=== PATIENT | male | born 1975 | race Caucasian/White ===

== ENCOUNTER 2022-11-26 19:47 | Emergency (ER) | payer OTHER, SELFPAY ==
--- NOTE | ~2022-11-26 | XR_ITS ---
EXAMINATION: XR CHEST CLINICAL INFORMATION: Cough with question pneumonia COMPARISON: None TECHNIQUE: Frontal view of the chest was obtained. FINDINGS: No significant abnormality is noted involving the heart, lungs, mediastinum, bony thorax or soft tissues. XR/XR chest 1V IMPRESSION: Unremarkable examination.
[2022-11-26 20:37] VITALS: BP 161/89; PULSE 87; RESP 20; TEMP 36.9; O2SAT 95; BMI 46.7
--- NOTE | 2022-11-26 20:42 | ECG_ITS ---
Test Reason : SOB Blood Pressure : / mmHG Vent. Rate : 079 BPM Atrial Rate : 079 BPM P-R Int : 124 ms QRS Dur : 094 ms QT Int : 380 ms P-R-T Axes : -06 -07 064 degrees QTc Int : 435 ms Normal sinus rhythm Normal ECG No previous ECGs available Referred By: Ankit Deras Electronically Signed By:Javier Erickson
--- NOTE | 2022-11-26 20:43 | ED.GENADULT ---
HPI - General Adult General Chief complaint: Dyspnea Stated complaint: ?Pneumonia/Sent from Urgent Care Related Data Allergies Allergy/AdvReac Type Severity Reaction Status Date / Time No Known Allergies Allergy Verified 11/26/22 20:41 Physical Exam ED Vital Signs: Vital Signs - 24 hr 11/26/22 20:37 Temperature 98.5 F Pulse Rate 87 Respiratory Rate 20 Blood Pressure 161/89 H Pulse Oximetry 95 Oxygen Delivery Method Room Air BMI result Body Mass Index 46.7 Course Course Course Narrative: RME; 47 yold people presents to the ED for SOB and coughing. Patient is not toxic appearing. labs, ekg, and MARY ordered
[2022-11-26 21:35] LABS: MANUAL DIFF FLAG NO
[2022-11-26 21:52] LABS: Basophils Absolute Auto 0.1 X10*3/uL (0.0-0.2); Basophils Percent Auto 0.6 % (0-2); Eosinophils Absolute Auto 0.1 X10*3/uL (0.0-0.4); Eosinophils Percent Auto 0.5 % (0-4); Hematocrit 46.4 % (42.0-52.0); Hemoglobin 16.5 g/dl (14.0-18.0); Imm Gran Abs Auto 0.08 X10*3/uL (0.00-0.03); Imm Gran Pct Auto 0.6 % (0.0-0.4); Lymphocytes Absolute Auto 3.1 X10*3/uL (1.2-4.9); Lymphocytes Percent Auto 22.7 % (20-40); Mean Corpuscular HGB Conc 35.6 g/dl (31.0-36.0); Mean Corpuscular Hemoglobin 31.3 pg (27.0-33.0); Mean Platelet Volume 9.6 fL (9.4-12.4); Monocytes Absolute Auto 1.3 X10*3/uL (0.1-1.2); Monocytes Percent Auto 9.5 % (2-11); Neutrophils Percent Auto 66.1 % (45-73); Platelet Count 241 X10*3/uL (160-400); Red Blood Count 5.27 X10*6/uL (4.60-5.80); Red Cell Distribution Width 11.9 % (11.0-16.0); White Blood Count 13.6 X10*3/uL (4.8-10.8)
[2022-11-26 21:59] LABS: Prothrombin Time 11.8 SEC (10.0-13.1)
[2022-11-26 22:02] LABS: Partial Thromboplastin Time 29.5 SEC (26.0-36.4)
[2022-11-26 22:06] LABS: Alanine Aminotransferase 29 U/L (0-40); Albumin Level 4.3 g/dL (3.5-5.0); Alkaline Phosphatase 68 U/L (39-117); Anion Gap 16 (12-20); Aspartate Amino Transferase 19 U/L (5-37); Bilirubin Total 0.8 mg/dL (0.0-1.0); Blood Urea Nitrogen 12 mg/dL (9-16); Calcium 9.2 mg/dL (8.4-10.2); Carbon Dioxide 27 mmol/L (22-29); Chloride 103 mmol/L (96-108); Creatinine Clr Calc Pharmacy 119.7; Estimated Glomerular Filt Rate > 60; Glucose Random 104 mg/dL (60-115); Potassium 3.8 mmol/L (3.3-5.1); Sodium 142 mmol/L (135-145); Total Protein 6.7 g/dL (6.5-8.0)
[2022-11-26 22:12] LABS: B Type Natriuretic Peptide 21 pg/mL (<100)
[2022-11-26 22:13] LABS: Troponin-I High Sensitivity < 3.5 ng/L (<3.5-35.0)
[2022-11-26 22:21] LABS: Influenza A PCR NEGATIVE (Negative); Influenza B PCR NEGATIVE (Negative); Resp Syncy Virus RNA Qual PCR NEGATIVE (Negative); SARS COV2 PCR INHOUSE NEGATIVE (Negative)
--- NOTE | 2022-11-26 23:16 | ED_ITS ---
HPI - General Adult General Chief complaint: Dyspnea Stated complaint: ?Pneumonia/Sent from Urgent Care Time Seen by Provider: 11/26/22 23:15 Source: patient Mode of arrival: ambulatory Limitations: no limitations History of Present Illness HPI narrative: This is a 47-year-old male with no significant medical history presenting to the emergency department with 3 weeks of fatigue, malaise, congestion, green/yellow rhinorrhea, cough productive of yellow/green sputum, fatigue, malaise, shortness of breath and wheezing, not improving. Patient tells me he went to Urgent Care today and was advised to come in for further evaluation treatment. Patient denies chest pain, fevers, chills, nausea, vomiting, abdominal pain, headache, vision changes, dizziness and weakness. Related Data Previous Rx's Medication Instructions Recorded albuterol sulfate 90 mcg/actuation 2 inh inhalation Q4-6H PRN 11/26/22 breath activated powder inhaler shortness of breath or wheezing #1 ea amoxicillin 875 mg-potassium 1 tab PO BID 10 days #20 tabs 11/26/22 clavulanate 125 mg tablet benzonatate 100 mg capsule 100 mg PO BID PRN cough #20 caps 11/26/22 prednisone 20 mg tablet 40 mg PO DAILY 5 days #10 tabs 11/26/22 Allergies Allergy/AdvReac Type Severity Reaction Status Date / Time No Known Allergies Allergy Verified 11/26/22 20:41 Review of Systems Review of Systems: Constitutional : No Weight loss, No Fever, No Chills, + Fatigue,+No Malaise ENT/Mouth : No sore throat, No Rhinorrhea, + congestion Eyes: No Eye Pain, No Swelling, No Redness Cardiovascular : No Chest Pain, No SOB, No Dyspnea on Exertion, No Orthopnea, No Edema, No Palpitations Respiratory : + Cough, + Sputum, + Wheezing Gastrointestinal : No Nausea, No Vomiting, No Diarrhea, No Constipation, No abdominal Pain, No Hematochezia, No Melena Genitourinary : No Dysuria, No Urinary Frequency, No Hematuria, Musculoskeletal : No joint pain, No Myalgias, No Joint Swelling Skin : No Skin Lesions, No rash Neuro : No Weakness, No Numbness, No Dizziness, No Headache Psych : No Anxiety/Panic, No Depression All other systems reviewed and are negative Yes all other systems are reviewed and are negative [facility] Past Medical History Attestation statement: The following information was validated with the patient. Source: old records reviewed and nursing notes reviewed Social History Social History Advance Directives: No Advance Directives Information Provided: No Physical Exam ED Vital Signs: Vital Signs - 24 hr 11/26/22 20:37 11/26/22 23:41 Temperature 98.5 F Pulse Rate 87 85 Respiratory Rate 20 18 Blood Pressure 161/89 H Pulse Oximetry 95 Oxygen Delivery Method Room Air BMI result Body Mass Index 46.7 vss Appearance: Alert.? Oriented X3.? No acute distress.? Patient comfortable appearing speaking in full sentences. Head: Normocephalic, atraumatic, no step-offs or deformities Eyes: Pupils equal, round and reactive to light.? ENT: Pharynx normal.? Neck: Normal inspection.? Neck supple.? CVS: Normal heart rate and rhythm.? Pulses normal.? Respiratory: No respiratory distress.? Breath sounds + diminished breath sounds bilaterally and inspiratory and expiratory wheezing.? Abdomen: Soft and nontender.? Skin: Skin warm and dry.? Normal skin color.? Normal skin turgor.? Extremities: No lower extremity edema.? No calf ttp, negative Natalia bilaterally. 5/5 strength to bilateral upper and lower extremities Neuro: Oriented X 3.? No motor deficit.? No sensory deficit. CN 2-12 intact Course Reevaluation(s) Reevaluation #1: CBC is elevated leukocytosis 13.6, chemistry with no acute findings requiring intervention. Troponin negative, EKG nonischemic unlikely ACS. Flu/COVID/RSV negative. Chest x-ray unremarkable. Coags normal. Time: 23:42 Reevaluation #2: Patient currently receiving DuoNeb, magnesium, Solu-Medrol. Time: 23:44 Reevaluation #3: Patient reports feeling better after magnesium and Solu-Medrol and breathing treatment. Still has wheezing however 97% on room air, speaking in full sentences, exam is significantly improved from initial will give one more duoneb. This is likely bronchitis. Will discharge patient home with steroids, antibiotics. Educated patient on diagnosis and treatment plan, answered all question, patient verbalizes understanding. At this time patient will be discharged home, advised to return with new or worsening symptoms. Educated on worrisome signs and symptoms and when to return. At this time I feel comfortable discharge home. Time: 00:53 Medications Administered Generic Name Dose Route Start Last Admin Trade Name Freq PRN Reason Stop Dose Admin Magnesium Sulfate 2 gm in 50 mls @ 25 mls/hr 11/26/22 23:26 11/26/22 23:33 Magnesium Sulfate/H2o IV 11/27/22 01:25 25 mls/hr ONCE ONE Administration Discontinued Medications Generic Name Dose Route Start Last Admin Trade Name Freq PRN Reason Stop Dose Admin Albuterol/Ipratropium 3 ml 11/26/22 23:26 11/26/22 23:39 Albuterol/Iprat 2.5/0.5mg 3 Ml Ampul.Neb INHALE 11/26/22 23:27 3 ml ONCE ONE Administration Methylprednisolone Sodium Succinate 125 mg 11/26/22 23:26 11/26/22 23:33 Methylprednisolone Sod Succ 125 Mg/2 Ml Vial IVPUSH 11/26/22 23:27 125 mg ONCE ONE Administration Medical Decision Making Medical Decision Making [facility] Narrative: 2300 47-year-old male presents with on resolving upper respiratory symptoms x3 weeks. Physical exam significant for diminished breath sounds bilaterally and inspiratory and expiratory wheezing. Patient speaking in full sentences, comfortable appearing. Likely bacterial bronchitis versus viral illnesses, Unlikely PE, pneumonia, pneumothorax. PERC negative. Plan at this time basic labs, imaging, viral test Differential Diagnosis Differential Diagnoses: The differential diagnosis associated with the presentation includes Likely bacterial bronchitis versus viral illnesses, Unlikely PE, pneumonia, pneumothorax. Admission/Observation Consideration of admission/observation: Escalation of care including admission/observation considered Lab Data [facility] Lab Attestation statement: I reviewed the patient's lab results. 11/26/22 21:28 11/26/22 21:28 Labs: Lab Results 11/26/22 11/26/22 11/26/22 Range/Units 21:27 21:28 21:28 WBC 13.6 H (4.8-10.8) X10*3/uL RBC 5.27 (4.60-5.80) X10*6/uL Hgb 16.5 (14.0-18.0) g/dl Hct 46.4 (42.0-52.0) % MCV 88.0 (80.0-98.0) fL MCH 31.3 (27.0-33.0) pg MCHC 35.6 (31.0-36.0) g/dl RDW 11.9 (11.0-16.0) % Plt Count 241 (160-400) X10*3/uL MPV 9.6 (9.4-12.4) fL Immature Gran % (Auto) 0.6 H (0.0-0.4) % Neut % (Auto) 66.1 (45-73) % Lymph % (Auto) 22.7 (20-40) % Karnes % (Auto) 9.5 (2-11) % Eos % (Auto) 0.5 (0-4) % Baso % (Auto) 0.6 (0-2) % Lymph # (Auto) 3.1 (1.2-4.9) X10*3/uL Karnes # (Auto) 1.3 H (0.1-1.2) X10*3/uL Eos # (Auto) 0.1 (0.0-0.4) X10*3/uL Baso # (Auto) 0.1 (0.0-0.2) X10*3/uL Abs Immat Gran (auto) 0.08 H (0.00-0.03) X10*3/uL Absolute Neuts (auto) 9.0 H (2.0-8.3) x10*3/uL Absolute Nucleated RBC 0.000 (0.0-0.012) X10*3/uL Nucleated RBC % (auto) 0.0 (0.0-0.2) /100WBC PT 11.8 (10.0-13.1) SEC INR 1.0 (0.9-1.1) APTT 29.5 (26.0-36.4) SEC Sodium (135-145) mmol/L Potassium (3.3-5.1) mmol/L Chloride (96-108) mmol/L Carbon Dioxide (22-29) mmol/L Anion Gap (12-20) BUN (9-16) mg/dL Creatinine (0.5-1.4) mg/dL Estim Creat Clear Calc Estimated GFR Random Glucose (60-115) mg/dL Calcium (8.4-10.2) mg/dL Total Bilirubin (0.0-1.0) mg/dL AST (5-37) U/L ALT (0-40) U/L Alkaline Phosphatase (39-117) U/L Troponin I High Sens (<3.5-35.0) ng/L B-Natriuretic Peptide (<100) pg/mL Total Protein (6.5-8.0) g/dL Albumin (3.5-5.0) g/dL Influenza Type A (PCR) NEGATIVE (Negative) Influenza Type B (PCR) NEGATIVE (Negative) RSV RNA Qual (PCR) NEGATIVE (Negative) SARS-CoV-2 RNA (RT-PCR) NEGATIVE (Negative) 11/26/22 11/26/22 11/26/22 Range/Units 21:28 21:28 21:28 WBC (4.8-10.8) X10*3/uL RBC (4.60-5.80) X10*6/uL Hgb (14.0-18.0) g/dl Hct (42.0-52.0) % MCV (80.0-98.0) fL MCH (27.0-33.0) pg MCHC (31.0-36.0) g/dl RDW (11.0-16.0) % Plt Count (160-400) X10*3/uL MPV (9.4-12.4) fL Immature Gran % (Auto) (0.0-0.4) % Neut % (Auto) (45-73) % Lymph % (Auto) (20-40) % Karnes % (Auto) (2-11) % Eos % (Auto) (0-4) % Baso % (Auto) (0-2) % Lymph # (Auto) (1.2-4.9) X10*3/uL Karnes # (Auto) (0.1-1.2) X10*3/uL Eos # (Auto) (0.0-0.4) X10*3/uL Baso # (Auto) (0.0-0.2) X10*3/uL Abs Immat Gran (auto) (0.00-0.03) X10*3/uL Absolute Neuts (auto) (2.0-8.3) x10*3/uL Absolute Nucleated RBC (0.0-0.012) X10*3/uL Nucleated RBC % (auto) (0.0-0.2) /100WBC PT (10.0-13.1) SEC INR (0.9-1.1) APTT (26.0-36.4) SEC Sodium 142 (135-145) mmol/L Potassium 3.8 (3.3-5.1) mmol/L Chloride 103 (96-108) mmol/L Carbon Dioxide 27 (22-29) mmol/L Anion Gap 16 (12-20) BUN 12 (9-16) mg/dL Creatinine 0.97 (0.5-1.4) mg/dL Estim Creat Clear Calc 119.7 Estimated GFR > 60 Random Glucose 104 (60-115) mg/dL Calcium 9.2 (8.4-10.2) mg/dL Total Bilirubin 0.8 (0.0-1.0) mg/dL AST 19 (5-37) U/L ALT 29 (0-40) U/L Alkaline Phosphatase 68 (39-117) U/L Troponin I High Sens < 3.5 (<3.5-35.0) ng/L B-Natriuretic Peptide 21 (<100) pg/mL Total Protein 6.7 (6.5-8.0) g/dL Albumin 4.3 (3.5-5.0) g/dL Influenza Type A (PCR) (Negative) Influenza Type B (PCR) (Negative) RSV RNA Qual (PCR) (Negative) SARS-CoV-2 RNA (RT-PCR) (Negative) Independent Interpretation I performed an independent interpretation of an: Plain X-Ray (XR/XR chest 1V IMPRESSION: Unremarkable examination. ) Radiology Impression Discussion of test interpretation with radiology: I have reviewed the radiologist's reading. Core Measures AMI core measures followed: Yes Measure exclusions: not indicated Critical Care Time Critical Care Time Critical Care Time: No Discharge Plan Discharge Clinical Impression: Wheezing, Bronchitis Patient Disposition: Home, Self-Care Instructions: Upper Respiratory Infection (ED), Acute Cough (ED), Wheezing (ED) Additional Instructions: Take your medications as prescribed. If you were prescribed antibiotics today, it is important that you take your medication to their entirety, do not skip any doses, do not finish them early. Follow-up with your primary care provider this week. Return to the emergency department with new or worsening symptoms. Such as fevers, chills, chest pain, shortness of breath, nausea, vomiting, dizziness, headache, vision changes, lethargy In case of emergency call 911 Flu/COVID/RSV negative. Prescriptions: New benzonatate 100 mg capsule 100 mg PO BID PRN (Reason: cough) Qty: 20 0RF amoxicillin-pot clavulanate 875-125 mg tablet 1 tab PO BID 10 Days Qty: 20 0RF prednisone 20 mg tablet 40 mg PO DAILY 5 Days Qty: 10 0RF albuterol sulfate 90 mcg/actuation aerosol powdr breath activated 2 inh inhalation Q4-6H PRN (Reason: shortness of breath or wheezing) Qty: 1 0RF Referrals: Trung Sheehan CNP [Primary Care Provider] - 2 days Stand Alone Forms: Work/School Release
[2022-11-26] MEDS: methylPREDNISolone Sod Succ 125 MG/2 ML VIAL IVPUSH (23:33)
[2022-11-26] MEDS: Magnesium Sulfate/H2O 2 GM/50 ML PIGGYBACK IV (23:33)
[2022-11-26] MEDS: Albuterol/Iprat 2.5/0.5MG 3 ML AMPUL.NEB INHALE (23:39)
[2022-11-26 23:41] VITALS: PULSE 85; RESP 18; O2SAT 99
[2022-11-27 00:57] LABS: D Dimer High Sensitivity < 150 NG/ML
[2022-11-27 01:03] VITALS: PULSE 89; RESP 16; O2SAT 99
[2022-11-27] MEDS: Albuterol/Iprat 2.5/0.5MG 3 ML AMPUL.NEB INHALE (01:03)
[2022-11-27] MEDS: Amoxicillin/Potassium Clav 875 MG TABLET PO (01:16)
[2022-11-27 01:19] VITALS: PULSE 86; RESP 16; O2SAT 98
== END 2022-11-27 01:20 | disposition home or self-care (01) ==
PROVIDERS: Physician Assistant; Emergency Provider Internal Medicine; PCP Nurse Practitioner Family
DX: J40 Bronchitis, not specified as acute or chronic (principal); R06.2 Wheezing; R06.02 Shortness of breath; Z20.822 Contact with and (suspected) exposure to COVID-19; Z20.828 Contact with and (suspected) exposure to other viral communicable diseases
CPT/HCPCS: 0241U; 36415; 71045; 80053; 83880; 84484; 85025; 85379; 85610; 85730; 93005; 94640; 96374; 96375; 99284; J2930; J3475

== ENCOUNTER 2023-03-21 16:54 | Outpatient (REF) | payer OTHER, SELFPAY ==
--- NOTE | ~2023-03-21 | XR_ITS ---
EXAMINATION: XR CHEST CLINICAL INFORMATION: Cough COMPARISON: X-ray 11/16/2022 TECHNIQUE: 2 views of the chest were obtained. FINDINGS: The cardiomediastinal silhouette is within normal limits. The lungs are well expanded. There is no focal consolidation, edema, or effusion. No pneumothorax. No acute osseous abnormality. XR/XR chest 2V IMPRESSION: No acute process seen.
== END 2023-03-21 16:55 | disposition home or self-care (01) ==
LOC: HO.HMGCX 16:54
PROVIDERS: PCP Nurse Practitioner Family; Visit Provider Nurse Practitioner Family
DX: R05.9 Cough, unspecified (principal)
CPT/HCPCS: 71046

== ENCOUNTER 2023-04-14 07:42 | Outpatient (REF) | payer OTHER, SELFPAY ==
[2023-04-14 11:08] LABS: MANUAL DIFF FLAG NO
[2023-04-14 11:18] LABS: Basophils Absolute Auto 0.1 X10*3/uL (0.0-0.2); Basophils Percent Auto 0.6 % (0-2); Eosinophils Absolute Auto 0.1 X10*3/uL (0.0-0.4); Eosinophils Percent Auto 0.7 % (0-4); Hematocrit 47.3 % (42.0-52.0); Hemoglobin 16.4 g/dl (14.0-18.0); Imm Gran Abs Auto 0.08 X10*3/uL (0.00-0.03); Imm Gran Pct Auto 0.9 % (0.0-0.4); Lymphocytes Absolute Auto 3.8 X10*3/uL (1.2-4.9); Lymphocytes Percent Auto 40.6 % (20-40); Mean Corpuscular HGB Conc 34.7 g/dl (31.0-36.0); Mean Corpuscular Volume 92.2 fL (80.0-98.0); Mean Platelet Volume 10.2 fL (9.4-12.4); Monocytes Percent Auto 10.3 % (2-11); Neutrophils Absolute Auto 4.4 x10*3/uL (2.0-8.3); Neutrophils Percent Auto 46.9 % (45-73); Platelet Count 244 X10*3/uL (160-400); Red Blood Count 5.13 X10*6/uL (4.60-5.80); Red Cell Distribution Width 12.1 % (11.0-16.0); White Blood Count 9.4 X10*3/uL (4.8-10.8)
[2023-04-14 12:00] LABS: Cholesterol 168 mg/dL; HDL Cholesterol 35 mg/dL; LDL Cholesterol Calculated 115 mg/dl; Triglycerides 94 mg/dL
[2023-04-14 12:08] LABS: TSH reflex Free T4 2.86 uIU/mL (0.32-4.0)
[2023-04-18 18:52] LABS: PSA, Ultra Sensitive 0.55 ng/mL
== END 2023-04-14 07:43 | disposition home or self-care (01) ==
LOC: HO.WFDLDS 07:42
PROVIDERS: Visit Provider Nurse Practitioner Family
DX: Z00.00 Encounter for general adult medical examination without abnormal findings (principal); Z12.5 Encounter for screening for malignant neoplasm of prostate
CPT/HCPCS: 36415; 80061; 84153; 84443; 85025

== ENCOUNTER 2023-09-15 08:02 | Outpatient (AMB) | payer OTHER, SELFPAY ==
--- NOTE | 2023-09-15 08:09 | MHC.PC.OV ---
Vital Signs 09/15/23 08:12 09/15/23 08:49 Height 5 ft 6 in Weight 295 lb BMI 47.6 BP 158/90 H 118/90 H Blood Pressure Location Lt brachial Lt brachial Position Sitting Sitting Respiration 13 Pulse 78 Pulse Source Pulse Oximeter Pulse Oximetry (%) 97 Oxygen Delivery Method Room Air Intake Visit Reasons: CPE Intake Note: Patient is here for a physical. Patient reports he has intermittent pain in his left hip. Patient's hip hurts more when laying down and moving the hip. 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 Accompanied by: Self / Same As Patient Allergies No Known Allergies Allergy (Verified 09/15/23 08:19) Tobacco use date assessed: 09/15/23 Dental Screening Dental Screen Date: 09/15/23 Did you have a dental visit in the last 12 months?: No Did you have a dental problem in the last 6 months where you did not have access to dental care?: No Was dental information given to patient?: Yes HPI HPI Comments History of Present Illness Details 48-year-old male presents to [facility] care He has past medical history significant for hypertension His last routine blood work was in March 2023 with unremarkable findings His initial BP is elevated, 158/90. He admits to taking his medications as prescribed and took his antihypertensives almost an hour ago. He notes that he monitor his blood pressure at home at least 3 times weekly and is usually between 115-120/80s to 90s He was referred to [facility] [place] management. He notes that he was informed his health plan would not cover the proposed treatments. He notes that he cannot afford to pay out of pocket. He notes that his last colonoscopy was 10 years ago: normal. He states he had colonoscopy due to GI bleed He notes he has not gotten the Shingrix vaccines [facility] Medical History Anxiety Family History Paternal Grandmother High blood pressure Paternal Grandfather High blood pressure Paternal Grandfather High blood pressure Social History (Updated 09/15/23 @ 08:22 by Sharona Jane CMA) Household Members: Family Household Members Other:: parents Housing: House Alcohol intake: current Alcohol intake frequency: a few times a month Alcohol type: beer Patient Tobacco Use Status: Former Tobacco user Cigarette Packs Per Day: 1 Cigarettes Per Day: 20 Years Smoked: 10 e-Cigarette/Vaping Use: Never Used Second Hand Smoke Exposure: No Substance Use Type: Marijuana service: No Current occupational status: employed Current occupation: [employer] Sexual orientation: Unable to collect Gender identity: Unable to collect Cognitive needs: No Hearing needs: No Vision needs: No Questionnaire PHQ-9 Over the last 2 weeks, how often have you been bothered by any of the following problems? 1. Little interest or pleasure in doing things: not at all 2. Feeling down, depressed, or hopeless: not at all 3. Trouble falling or staying asleep, or sleeping too much: several days (checking on 98 year old grandfather) 4. Feeling tired or having little energy: several days 5. Poor appetite or overeating: not at all 6. Feeling bad about yourself - or that you are a failure or have let yourself or your family down: not at all 7. Trouble concentrating on things, such as reading the newspaper or watching television: not at all 8. Moving or speaking so slowly that other people could have noticed. Or the opposite - being so fidgety or restless that you have been moving around a lot more than usual: not at all 9. Thoughts that you would be better off or of hurting yourself in some way: not at all Total score: 2 Depression Screening Interpretation: Negative Depression Screening Done: Yes 45236 - PHQ-9 Billing: Yes Source: Developed by Drs. Gilbert Tomlin, Diana Jacob, Eleazar Maddox and colleagues, with an educational gm from [employer]. Thrive Questionnaire Date Thrive assessed: 09/15/23 I am a: Patient What is your living situation today?: I have a steady place to live Within the past 12 months, did the food you bought not last and you didn't have the money to get more?: Never true Within the past 12 months, did you worry whether your food would run out before you got money to buy more?: Never true Do you have trouble paying for medicines?: No Do you have trouble getting transportation to medical appointments?: No Do you have trouble paying your heating and electricity bill?: No Do you have trouble taking care of your child, family member or friend?: No Do you have trouble with day-to-day activities such as bathing, preparing meals, shopping, managing finances, etc.?: No Are you currently unemployed and looking for a job?: No Are you interested in more education?: No Please select the resources that you would like help with: None Currently or been in a relationship where the following occur: no concerns reported AUDIT C Alcohol Use Questionnaire (AUDIT-C) 1. How often do you have a drink containing alcohol?: Monthly or less 3. How often do you have six or more drinks on one occasion?: Never Total Score: 1 JAMES-7 AMB Questionnaire JAMES-7 Date JAMES - 7 assessed: 09/15/23 Feeling nervous, anxious, or on edge: 0 = Not at all Not being able to stop or control worryin = Not at all Worrying too much about different things: 0 = Not at all Trouble relaxin = Not at all Being so restless that it is hard to sit still: 0 = Not at all Becoming easily annoyed or irritable: 0 = Not at all Feeling afraid as if something awful might happen: 1 = Several days Total JAMES-7 score (0-4 normal; 5-9 mild; 10-14 moderate; 15-21 severe): 1 Source: Developed by Drs. Gilbert Tomlin, Diana Jacob, Eleazar Maddox and colleagues, with an educational gm from [employer]. JAMES-7 Assessment Billing JAMES-7 Assessment Tool: JAMES-7 Assessment 60152 Review of Systems Const Details: Denies chills, Denies fatigue, Denies fever(s), Denies headache(s) and Denies weakness HEENT Denies change in vision, Denies dizziness, Denies headache(s), Denies hearing loss, Denies nasal congestion, Denies sinus pain, Denies sinus pressure and Denies sore throat Card Denies chest pain, Denies lightheadedness, Denies dyspnea and Denies other (palpitations) Resp Denies cough, Denies dyspnea and Denies wheezing GI Denies abdominal pain, Denies melena, Denies hematochezia, Denies change in bowel habits, Denies dyspepsia and Denies nausea Denies hematuria and Denies dysuria Musc Denies abnormal gait, Denies myalgias, Denies arthralgias, Denies numbness and Denies tingling Skin/Breast Denies rash, Denies unusual bruising and Denies wounds Neuro Denies abnormal gait, Denies dizziness, Denies headache(s), Denies memory loss, Denies numbness, Denies Sensory deficit (Neuro), Denies tingling and Denies weakness Psych Denies anxiety, Denies depression and Denies memory loss Endo Denies cold intolerance, Denies fatigue, Denies heat intolerance, Denies polydipsia and Denies polyuria Gabino/Lymph Denies easy bleeding and Denies easy bruising Aller/Immun Denies wheezing Physical exam (Primary Care) Vital Signs: Last Vital Signs Pulse 78 09/15/23 08:12 Resp 13 09/15/23 08:12 BP 158/90 H 09/15/23 08:12 Pulse Ox 97 09/15/23 08:12 Oxygen Delivery Method Room Air 09/15/23 08:12 BMI result Body Mass Index 47.6 Tobacco/Smoking Status: Tobacco use Status Tobacco use date assessed 09/15/23 09/15/23 08:25 Patient Tobacco Use Status Former Tobacco user 09/15/23 08:22 e-Cigarette/Vaping Use Never Used 09/15/23 08:22 PHQ-9: PHQ-9 Score PHQ-9: Total score 2 09/15/23 08:25 Depression Screening Interpretation: Negative Thrive Assessment: Date of Thrive Assessment Date Thrive assessed 09/15/23 09/15/23 08:25 Currently or been in a relationship where the following occur: no concerns reported Const Other: General: no acute distress, well developed, alert and awake Nutritional Appearance: well nourished Orientation/consciousness: patient oriented x3 HENMT Head: Yes normocephalic and Yes atraumatic Ears: hearing grossly normal bilaterally and TM's normal bilaterally General nose exam: Normal external nose present and Normal nares present Mouth: Normal oral and palatal mucosa present and moist mucous membranes Teeth and gingiva: dentition normal Throat: Yes oropharynx normal Eyes Pupils: Equal, round and reactive pupils present and Pupil accommodation reflex normal EOM: EOMs intact bilaterally Neck Neck: Yes normal visual inspection, Yes no lymphadenopathy and Yes trachea midline Thyroid: Thyroid normal Carotids: no bruits Lymphatic: no lymphadenopathy noted Chest Chest palpation & inspection: normal inspection of the chest Resp Effort & Inspection: normal respiratory effort Auscultation: clear to auscultation bilaterally Cardio Rate: regular rate Rhythm: regular rhythm Heart sounds: S1 normal heart sound present, S2 normal heart sound present, no gallops, no murmurs and no rubs Bruits: no abdominal aortic bruits and no carotid bruits GI Palpation (GI): No Abdominal aortic bruit present, Soft to palpation, nontender, No hepatosplenomegaly present and No Rebound tenderness present Auscultation: normal bowel sounds General: Yes no CVA tenderness Back/Spine/Pelvis Back: no CVA tenderness Cervical Spine: cervical ROM normal and No Cervical spine tenderness Thoracic/Lumbar Spine: thoraco-lumbar ROM normal, No pain with thoraco-lumbar ROM, No thoracic spinal tenderness and No lumbar spinal tenderness Skin General: warm and dry. Normal skin color. Normal skin turgor Lesions: no lesions Rashes: no rashes Trauma: no lacerations or abrasions Wounds: no wounds Nails: normal Neuro General: patient oriented x3, gait normal and CN's II-XI intact bilaterally Cranial nerves: Yes Equal, round and reactive pupils present Cognition (Neuro): normal cognition Gait exam (Neuro): Normal gait present Motor exam (neuro): 5/5 motor strength present throughout Sensory Exam: No Sensory deficit (Neuro) Deep tendon reflexes (DTR's): Right patellar reflex intensity grade: 2+ and Left patellar reflex intensity grade: 2+ Extrem General: Yes normal to inspection, No edema and No calf tenderness Psych Appearance: grossly normal Affect: normal affect Attitude: cooperative Thought process: Normal thought process present Assessment and Plan Assessment & Plan (1) Normal physical examination, routine: Code(s): Z00.00 - Encounter for general adult medical examination without abnormal findings Plan: No significant physical restrictions or limitations noted He will follow-up in 2 months for hypertension Return sooner with symptoms or concerns Verbalized understanding and agreed with treatment plan. (2) HTN (hypertension): Code(s): I10 - Essential (primary) hypertension Plan: Resting blood pressure is 118/90, slightly above goal of less than 140/90 He took his antihypertensives an hour ago; his blood pressure may continue to improve Continue with current treatment regimen Low-sodium diet encouraged Continue to monitor BP and report readings persistently above 140/90 Follow-up in 2 months or return sooner with symptoms or concerns Verbalized understanding and agreed with treatment plan. (3) Colon cancer screening: Code(s): Z12.11 - Encounter for screening for malignant neoplasm of colon Plan: He notes that his last colonoscopy was 10 years ago: normal. He states he had colonoscopy due to GI bleed Referred to [facility] for a colonoscopy (4) Vaccine counseling: Code(s): Z71.85 - Encounter for immunization safety counseling Plan: He notes that he has not get and the Shingrix vaccines Instructed on the importance of vaccination and encouraged to get vaccinated for shingles Verbalized understanding and agreed with the plan. (5) Morbid obesity with BMI of 45.0-49.9, adult: Code(s): E66.01 - Morbid (severe) obesity due to excess calories; Z68.42 - Body mass index [BMI] 45.0-49.9, adult Plan: He was referred to [facility] weight management. He notes that he was informed his health plan would not cover the proposed treatments. He notes that he cannot afford to pay out of pocket Declines referral to metal window screen assembler/dietitian Healthy diet instructed and encouraged Routine exercise encouraged He may contact his PCP for referral to metal window screen assembler/dietitian if he changes mind Follow-up as needed Verbalized understanding and agreed with the plan. Orders: Referrals Gastroenterology Referral Z12.11 - Encounter for screening for malignant neoplasm of colon Coding Level of Care Code Est Pt Prev Care 40-64y(71813) Diagnoses Normal physical examination, routine Z00.00 HTN (hypertension) I10 Colon cancer screening Z12.11 Vaccine counseling Z71.85 Morbid obesity with BMI of 45.0-49.9, adult E66.01; Z68.42 Additional Codes JAMES-7 Assessment Billing - JAMES-7 Assessment Tool: JAMES-7 Assessment 41903 ([id number])
[2023-09-15 08:12] VITALS: BP 158/90; PULSE 78; RESP 13; O2SAT 97; BMI 47.6
[2023-09-15 08:49] VITALS: BP 118/90
== END 2023-09-15 08:58 | disposition home or self-care (01) ==
PROVIDERS: PCP Nurse Practitioner Family; Visit Provider Nurse Practitioner Family
DX: Z00.00 Encounter for general adult medical examination without abnormal findings (principal); I10 Essential (primary) hypertension; E66.01 Morbid (severe) obesity due to excess calories; Z68.42 Body mass index [BMI] 45.0-49.9, adult; Z12.11 Encounter for screening for malignant neoplasm of colon; Z71.85 Encounter for immunization safety counseling
CPT/HCPCS: 99396

== ENCOUNTER 2023-10-08 08:38 | Outpatient (AMB) | payer OTHER, SELFPAY ==
--- NOTE | 2023-10-08 09:42 | AM.OFFWIN_ITS ---
Intake Vital Signs 10/08/23 09:47 Height 5 ft 6 in Weight 282 lb BMI 45.5 BP 148/80 H Blood Pressure Location Rt brachial Position Sitting Pulse 95 Pulse Source Pulse Oximeter Temp 97.8 F Temp Source Temporal Artery Scan Pulse Oximetry (%) 99 Oxygen Delivery Method Room Air Intake Visit Reasons: EP feet/face swollen [id number] Intake Note: Pt is here c/o swollen bilateral feet and hands. Pt states he has had a cold for a few days as well. Patient Tobacco Use Status: Former Tobacco user Allergies No Known Allergies Allergy (Verified 10/08/23 10:06) Medication List - Last Reconciled 10/08/23 by Radha Cunningham, TAX REVENUE OFFICER-BC aspirin 81 mg PO DAILY losartan-hydrochlorothiazide 100-12.5 mg 1 tab PO DAILY metoprolol succinate ER 50 mg PO DAILY Do you need a note to return to daycare/school/sports/work: Yes HPI HPI Comments History of Present Illness Details about 1 week ago started sneezing a lot, nose w/ lots of clear drainage couldn't stop sneezing the next day, started using sudafed 12 hour pain relief and cough drops as he then developed a cough the AM after he took 1 dose of sudafed, he felt like his feet were swollen and painful he cont to take sudafed at HS and the next AM he would wake a new symptoms -swelling and pain in bilat hands and then yesterday started w/ swelling in face and lips his hands and feet were really itchy this has never happened before last time he took sudafed was 15 years ago denies trouble breathing or swallowing reviewed RXd meds, none are new, has been taking for years denies any other new exposures . [facility] Medical History Anxiety Family History Paternal Grandmother High blood pressure Paternal Grandfather High blood pressure Paternal Grandfather High blood pressure Social History (Updated 09/15/23 @ 08:22 by Sharona Jane CMA) Household Members: Family Household Members Other:: parents Housing: House Alcohol intake: current Alcohol intake frequency: a few times a month Alcohol type: beer Patient Tobacco Use Status: Former Tobacco user Cigarette Packs Per Day: 1 Cigarettes Per Day: 20 Years Smoked: 10 e-Cigarette/Vaping Use: Never Used Second Hand Smoke Exposure: No Substance Use Type: Marijuana service: No Current occupational status: employed Current occupation: [employer] Sexual orientation: Unable to collect Gender identity: Unable to collect Cognitive needs: No Hearing needs: No Vision needs: No Review of Systems Const All systems reviewed & are unremarkable except as noted in HPI and below Physical Exam Vital Signs: Last Vital Signs Temp 97.8 F 10/08/23 09:47 Pulse 95 10/08/23 09:47 BP 148/80 H 10/08/23 09:47 Pulse Ox 99 10/08/23 09:47 Oxygen Delivery Method Room Air 10/08/23 09:47 BMI result Body Mass Index 45.5 Const Other: awake alert edema of face and lips scleras & conjunctiva clear TM bulging and loss of landmarks on R, mild effusion L nares with clear drainage, turbinates pale and edematous bilat pharynx clear, managing secretions LS with ins/exp wheeze throughout, speaking in full sentences edema and red dry flaky rash noted to palmar surfaces of hands and plantar surface of bilat feet Assessment & Plan Assessment & Plan (1) Angioedema: Code(s): T78.3XXA - Angioneurotic edema, initial encounter Qualifiers: Encounter type: initial encounter Qualified Code(s): T78.3XXA - Angioneurotic edema, initial encounter Plan: . (2) Wheezing: Code(s): R06.2 - Wheezing Plan: . Medications: New diphenhydramine HCl (Benadryl Allergy) 25 mg PO TID 5 days PRN 15 tabs 0RF allergy symptoms famotidine (Pepcid) 40 mg PO BEDTIME 14 days 14 tabs 0RF prednisone 5 tabs x 2 days, 4 tabs x 2 days, 3 tabs x 2 days, 2 tabs x 2 days, 1 tab x 2 days and then STOP. 10 mg PO DIRECTED 10 days 30 tabs 0RF Patient Instructions: stop taking otc sudafed immediatley. take a pic of this medication and do not take any of its components as its a combo medication take above meds as directed. ok to use albuterol that you have at home as directed fu in office friday for re-eval however if feeling better, no need to come back in, however will need to add meds to your allergy profile update pharmacy w your allergies, too. work note given no driving, operating heavy machinery or signing legal docs while taking benadryl if breathing becomes labored or facial swelling worsens will need to seek ED level are. Coding Level of Care Code Est Pt Level 5 (04551) Diagnoses Angioedema, initial encounter T78.3XXA Encounter type: initial encounter Wheezing R06.2
[2023-10-08 09:47] VITALS: BP 148/80; PULSE 95; TEMP 36.6; O2SAT 99; BMI 45.5
== END 2023-10-08 10:30 | disposition home or self-care (01) ==
PROVIDERS: PCP Nurse Practitioner Family; Visit Provider Nurse Practitioner Family
DX: T78.3XXA Angioneurotic edema, initial encounter (principal); R06.2 Wheezing
CPT/HCPCS: 99214; 99215

== ENCOUNTER 2023-10-11 09:08 | Outpatient (AMB) | payer OTHER, SELFPAY ==
--- NOTE | 2023-10-11 09:45 | MHC.OFFWIV ---
Intake Vital Signs 10/11/23 09:48 Weight 127.913 kg BP 150/100 H Blood Pressure Location Lt brachial Position Sitting Pulse 88 Pulse Source Pulse Oximeter Temp 98.7 F Temp Source Oral Pulse Oximetry (%) 95 Oxygen Delivery Method Room Air Intake Visit Reasons: EP allergic reaction to medication wheezing cough Intake Note: Patient here to follow up from allergic reaction and was here on friday and seen Marc. He states he has been unable to sleep as hes been coughing a lot which causes chest pain. Patient Tobacco Use Status: Former Tobacco user Allergies No Known Allergies Allergy (Verified 10/08/23 10:06) Do you need a note to return to daycare/school/sports/work: No HPI HPI Comments History of Present Illness Details 0957 48 year old male presesnts w/ fatigue, malaise, myalgias, productive cough that has been ongoing for a week and a half not improving chest hurts w/ cough only . Patient reports he is on prednisone and an inhaler and it is not helping. He denies sick contacts. He reports last time this happened he ended up hospitalized at [facility] with hypoxia. NO CP, sob, n/v/d at this time Physical exam pain expiratory wheezing bilaterally. Saturating 95% on room air. Well appearing. 95% after ambulation Likely bacterial bronchitis versus viral illnesses, Unlikely acs, PE, pneumonia, pneumothorax. PERC negative. Plan doxycycline, prednisone which he is currently taking, albuterol and benzonatate. Educated patient on diagnosis and treatment plan, answered all question, patient verbalizes understanding. At this time patient will be discharged home, advised to return with new or worsening symptoms. Educated on worrisome signs and symptoms and when to return. At this time I feel comfortable discharge home. [facility] Medical History Anxiety Family History Paternal Grandmother High blood pressure Paternal Grandfather High blood pressure Paternal Grandfather High blood pressure Social History Household Members: Family Household Members Other:: parents Housing: House Alcohol intake: current Alcohol intake frequency: a few times a month Alcohol type: beer Patient Tobacco Use Status: Former Tobacco user Cigarette Packs Per Day: 1 Cigarettes Per Day: 20 Years Smoked: 10 e-Cigarette/Vaping Use: Never Used Second Hand Smoke Exposure: No Substance Use Type: Marijuana service: No Current occupational status: employed Current occupation: [employer] Sexual orientation: Unable to collect Gender identity: Unable to collect Cognitive needs: No Hearing needs: No Vision needs: No Review of Systems Const Details: Constitutional : No Weight loss, No Fever, No Chills, + Fatigue, + Malaise ENT/Mouth : No sore throat, No Rhinorrhea Eyes: No Eye Pain, No Swelling, No Redness Cardiovascular : No Chest Pain, No SOB, No Dyspnea on Exertion, No Orthopnea, No Edema, No Palpitations Respiratory : + Cough, + Sputum, + Wheezing Gastrointestinal : No Nausea, No Vomiting, No Diarrhea, No Constipation, No abdominal Pain, No Hematochezia, No Melena Genitourinary : No Dysuria, No Urinary Frequency, No Hematuria, Musculoskeletal : No joint pain, No Myalgias, No Joint Swelling Skin : No Skin Lesions, No rash Neuro : No Weakness, No Numbness, No Dizziness, No Headache Psych : No Anxiety/Panic, No Depression All other systems reviewed and are negative All systems reviewed & are unremarkable except as noted in HPI and below Physical Exam Vital Signs: Last Vital Signs Temp 98.7 F 10/11/23 09:48 Pulse 88 10/11/23 09:48 BP 150/100 H 10/11/23 09:48 Pulse Ox 95 10/11/23 09:48 Oxygen Delivery Method Room Air 10/11/23 09:48 Patient hypertensive however no signs of hypertensive urgency or emergency likely secondary to viral illness Appearance: Alert.? Oriented X3.? No acute distress.? Head: Normocephalic, atraumatic, no step-offs or deformities Eyes: Pupils equal, round and reactive to light.? ENT: Pharynx normal.? Neck: Normal inspection.? Neck supple.? CVS: Normal heart rate and rhythm.? Pulses normal.? Respiratory: No respiratory distress.? Breath sounds bilateral faint expiratory wheezing.? Abdomen: Soft and nontender.? Skin: Skin warm and dry.? Normal skin color.? Normal skin turgor.? Extremities: No lower extremity edema.? No calf ttp. 5/5 strength to bilateral upper and lower extremities Neuro: Oriented X 3.? No motor deficit.? No sensory deficit. CN 2-12 intact Assessment & Plan Assessment & Plan (1) Bronchitis: Code(s): J40 - Bronchitis, not specified as acute or chronic Plan Take your medications as prescribed. If you were prescribed antibiotics today, it is important that you take your medication to their entirety, do not skip any doses, do not finish them early. Follow-up with your primary care provider this week. Return to the emergency department with new or worsening symptoms. Such as fevers, chills, chest pain, shortness of breath, nausea, vomiting, dizziness, headache, vision changes, lethargy In case of emergency call 911 Medications: New doxycycline hyclate 100 mg PO BID 7 days 14 caps 0RF albuterol sulfate 90 mcg/actuation 2 puffs inhalation Q6H PRN 6.7 grams 0RF shortness of breath or wheezing benzonatate 100 mg PO BID PRN 14 caps 0RF cough Coding Level of Care Code Est Pt Level 3 (21352) Diagnoses Bronchitis J40
[2023-10-11 09:48] VITALS: BP 150/100; PULSE 88; TEMP 37.1; O2SAT 95
== END 2023-10-11 11:06 | disposition home or self-care (01) ==
PROVIDERS: PCP Nurse Practitioner Family; Visit Provider Physician Assistant
DX: J40 Bronchitis, not specified as acute or chronic (principal)
CPT/HCPCS: 99051; 99213

== ENCOUNTER 2023-10-15 08:05 | Outpatient (AMB) | payer OTHER, SELFPAY ==
--- NOTE | 2023-10-15 08:27 | MHC.OFFWIV ---
Intake Vital Signs 10/15/23 08:29 Height 5 ft 6 in Weight 282 lb BMI 45.5 BP 136/82 Blood Pressure Location Rt brachial Position Sitting Pulse 80 Pulse Source Pulse Oximeter Temp 98.3 F Pulse Oximetry (%) 96 Oxygen Delivery Method Room Air Intake Visit Reasons: cough Intake Note: Patient is here with cough for 2 weeks. Patient Tobacco Use Status: Former Tobacco user Allergies pseudoephedrine [From Sudafed] Allergy (Mild, Verified 10/15/23 08:48) Angioedema flonase Allergy (Mild, Uncoded 10/15/23 08:48) angioedema Medication List - Last Reconciled 10/15/23 by Radha Cunningham, [facility]- albuterol sulfate 90 mcg/actuation 1 inh inhalation QID albuterol sulfate 90 mcg/actuation 2 puffs inhalation Q6H PRN aspirin 81 mg PO DAILY benzonatate 100 mg PO BID PRN diphenhydramine HCl (Benadryl Allergy) 25 mg PO TID PRN 5 days doxycycline hyclate 100 mg PO BID 7 days famotidine (Pepcid) 40 mg PO BEDTIME 14 days losartan-hydrochlorothiazide 100-12.5 mg 1 tab PO DAILY metoprolol succinate ER 50 mg PO DAILY prednisone 10 mg PO DIRECTED 10 days Do you need a note to return to daycare/school/sports/work: No HPI HPI Comments History of Present Illness Details Here today c/o cough, worse and worse since onset. not sleeping. was seen in walk in 10/11 for this. given tessalon w/o relief & doxy. TAking as directed. paroxysmal cough. has 2 more days of pred taper. using albuterol w/ + relief but short lived. Denies fever, chills, chest pain. Admits chest wall pain from cough. Edema previously reported is gone. PFSH Medical History Anxiety Family History Paternal Grandmother High blood pressure Paternal Grandfather High blood pressure Paternal Grandfather High blood pressure Social History Household Members: Family Household Members Other:: parents Housing: House Alcohol intake: current Alcohol intake frequency: a few times a month Alcohol type: beer Patient Tobacco Use Status: Former Tobacco user Cigarette Packs Per Day: 1 Cigarettes Per Day: 20 Years Smoked: 10 e-Cigarette/Vaping Use: Never Used Second Hand Smoke Exposure: No Substance Use Type: Marijuana service: No Current occupational status: employed Current occupation: [employer] Sexual orientation: Unable to collect Gender identity: Unable to collect Cognitive needs: No Hearing needs: No Vision needs: No Review of Systems Const All systems reviewed & are unremarkable except as noted in HPI and below Physical Exam Vital Signs: Last Vital Signs Temp 98.3 F 10/15/23 08:29 Pulse 80 10/15/23 08:29 BP 136/82 10/15/23 08:29 Pulse Ox 96 10/15/23 08:29 Oxygen Delivery Method Room Air 10/15/23 08:29 BMI result Body Mass Index 45.5 Const Other: awake alert mildly ill appearing, tired Paroxysmal cough LS CTAB RRR Skin PWD Assessment & Plan Assessment & Plan (1) Bronchitis: Code(s): J40 - Bronchitis, not specified as acute or chronic Plan: . (2) Congestion of respiratory tract: Code(s): J98.8 - Other specified respiratory disorders Plan: . (3) Cough: Code(s): R05.9 - Cough, unspecified Qualifiers: Cough type: acute Qualified Code(s): R05.1 - Acute cough Plan . Medications: New budesonide 90 mcg/actuation 1 inh inhalation Q12H 1 month 1 ea 0RF codeine-guaifenesin 10-100 mg/5 mL 10 mL PO ONCE 7 days PRN 70 mL 0RF cough Patient Instructions: Advised to complete AB and Pred taper. Ok to cont to use Alb PRN. Start budesonide BID x 1 month. Rinse mouth after. STOP tessalon as this is not helping. Cont to avoid flonase and sudafed. these have been added to allergy list. Edu on reasons to seek addl care. Coding Level of Care Code Est Pt Level 4 (80768) Diagnoses Bronchitis J40 Congestion of respiratory tract J98.8 Acute cough R05.1 Cough type: acute
[2023-10-15 08:29] VITALS: BP 136/82; PULSE 80; TEMP 36.8; O2SAT 96; BMI 45.5
== END 2023-10-15 09:00 | disposition home or self-care (01) ==
PROVIDERS: PCP Nurse Practitioner Family; Visit Provider Nurse Practitioner Family
DX: J40 Bronchitis, not specified as acute or chronic (principal); J98.8 Other specified respiratory disorders; R05.1 Acute cough
CPT/HCPCS: 99214

== ENCOUNTER 2023-11-14 12:15 | Outpatient (AMB) | payer OTHER, SELFPAY ==
--- NOTE | 2023-11-14 12:18 | A.OFFPC_ITS ---
Vital Signs 11/14/23 12:19 Height 5 ft 6 in Weight 291 lb 6 oz BMI 47.0 BP 126/80 Blood Pressure Location Rt brachial Position Sitting Respiration 13 Pulse 81 Pulse Source Pulse Oximeter Temp 97.8 F Temp Source Temporal Artery Scan Pulse Oximetry (%) 99 Oxygen Delivery Method Room Air Intake Visit Reasons: 2 mos HTN Intake Note: Patient would also like refill on albuteral for wheezing and shortness of breath. [employer] Required: No Accompanied by: Self / Same As Patient Allergies pseudoephedrine [From Sudafed] Allergy (Mild, Verified 11/14/23 12:38) Angioedema flonase Allergy (Mild, Uncoded 11/14/23 12:38) angioedema Medication List - Last Reconciled 11/14/23 by Trung Sheehan CNP albuterol sulfate 90 mcg/actuation 1 inh inhalation QID albuterol sulfate 90 mcg/actuation 2 puffs inhalation Q6H PRN aspirin 81 mg PO DAILY budesonide 90 mcg/actuation 1 inh inhalation Q12H 1 month losartan-hydrochlorothiazide 100-12.5 mg 1 tab PO DAILY metoprolol succinate ER 50 mg PO DAILY Tobacco use date assessed: 11/14/23 Dental Screening Dental Screen Date: 11/14/23 Did you have a dental visit in the last 12 months?: No Did you have a dental problem in the last 6 months where you did not have access to dental care?: No Was dental information given to patient?: Yes HPI HPI Comments History of Present Illness Details 48-year-old male presents for hypertensi on follow-up He admits to taking his medications as prescribed without adverse reactions He reports persistent productive cough with occasional yellowish green phlegm since early September. Hewas recently evaluated and treated multiple times for bronchitis. He notes that the cough interrupts his sleep between 2am and 3 am. He has not had a chest x-ray done He notes that he recently joined the gym and plans to start exercising 3 days weekly He notes he has an appointment scheduled later this month with GI regarding colonoscopy [facility] Medical History Anxiety Surgical History (Updated 11/14/23 @ 12:29 by Ciara Martinez MA) No pertinent past surgical history Family History Paternal Grandmother High blood pressure Paternal Grandfather High blood pressure Paternal Grandfather High blood pressure Social History Household Members: Family Household Members Other:: parents Housing: House Alcohol intake: current Alcohol intake frequency: a few times a month Alcohol type: beer Patient Tobacco Use Status: Former Tobacco user Cigarette Packs Per Day: 1 Cigarettes Per Day: 20 Years Smoked: 10 e-Cigarette/Vaping Use: Never Used Second Hand Smoke Exposure: No Substance Use Type: Marijuana service: No Current occupational status: employed Current occupation: [employer] Sexual orientation: Unable to collect Gender identity: Unable to collect Cognitive needs: No Hearing needs: No Vision needs: No Questionnaire Thrive Questionnaire Date Thrive assessed: 09/15/23 JAMES-7 AMB Questionnaire JAMES-7 Date JAMES - 7 assessed: 09/15/23 Source: Developed by Drs. Gilbert Tomlin, Diana Jacob, Eleazar Maddox and colleagues, with an educational gm from [employer]. Review of Systems Const Details: Const Denies chills, Denies fatigue, Denies fever(s), Denies headache(s) and Denies weakness ENT Denies dizziness and Denies headache(s) Card Denies chest pain, Denies lightheadedness, Denies dyspnea and Denies other (Palpitations) Resp Reports cough, Denies dyspnea, Denies wheezing and Denies other ( shortness of breath) GI Denies abdominal pain, Denies melena, Denies hematochezia, Denies change in bowel habits, Denies dyspepsia and Denies nausea Denies hematuria and Denies dysuria Musc Denies abnormal gait, Denies myalgias, Denies arthralgias, Denies numbness and Denies tingling Skin/Breast Denies rash, Denies unusual bruising and Denies wounds Neuro Denies abnormal gait, Denies dizziness, Denies headache(s), Denies memory loss, Denies numbness, Denies Sensory deficit (Neuro), Denies tingling and Denies weakness Psych Denies anxiety, Denies depression, Denies memory loss Endo Denies cold intolerance, Denies fatigue, Denies heat intolerance, Denies polydipsia and Denies polyuria Aller/Immun Denies wheezing Physical exam (Primary Care) Vital Signs: Last Vital Signs Temp 97.8 F 11/14/23 12:19 Pulse 81 11/14/23 12:19 Resp 13 11/14/23 12:19 BP 126/80 11/14/23 12:19 Pulse Ox 99 11/14/23 12:19 Oxygen Delivery Method Room Air 11/14/23 12:19 BMI result Body Mass Index 47.0 Tobacco/Smoking Status: Tobacco use Status Tobacco use date assessed 11/14/23 11/14/23 12:29 Patient Tobacco Use Status Former Tobacco user 11/14/23 12:29 e-Cigarette/Vaping Use Never Used 11/14/23 12:29 Thrive Assessment: Date of Thrive Assessment Date Thrive assessed 09/15/23 11/14/23 12:29 Const Other: General: no acute distress and well developed Nutritional Appearance: well nourished Orientation/consciousness: patient oriented x3 HENMT Head is normocephalic Bilateral ear canal and TM are normal Nasal turbinates and oropharynx are pink and moist Sinuses are nontender with palpation No auricular or cervical lymphadenopathyc Eyes General: appearance normal, both eyes and all related structures Pupils: Equal, round and reactive pupils present EOM: EOMs intact bilaterally Resp Effort & Inspection: normal respiratory effort Auscultation: clear to auscultation bilaterally Cardio Rate: regular rate Rhythm: regular rhythm Heart sounds: S1 normal heart sound present, S2 normal heart sound present, no gallops, no murmurs and no rubs GI Palpation (GI): No Abdominal aortic bruit present, Soft to palpation, nontender, No hepatosplenomegaly present and No Rebound tenderness present Auscultation: normal bowel sounds General: Yes no CVA tenderness Back/Spine/Pelvis Back: no CVA tenderness Cervical Spine: cervical ROM normal and No Cervical spine tenderness Thoracic/Lumbar Spine: thoraco-lumbar ROM normal, No pain with thoraco-lumbar ROM, No thoracic spinal tenderness and No lumbar spinal tenderness Extrem General: Yes normal to inspection, No edema and No calf tenderness Skin General: warm and dry. Normal skin color. Normal skin turgor Neuro General: patient oriented x3, gait normal and no focal neuro deficit Cranial nerves: Yes Equal, round and reactive pupils present Cognition (Neuro): normal cognition Gait exam (Neuro): Normal gait present Sensory Exam: No Sensory deficit (Neuro) Psych Appearance: grossly normal Affect: normal affect Attitude: cooperative Thought process: Normal thought process present Assessment and Plan Assessment & Plan (1) HTN (hypertension): Code(s): I10 - Essential (primary) hypertension Plan: Blood pressure is 126/80, within goal of less than 140/90 Continue current treatment regimen Low-sodium diet and routine exercise encouraged Follow-up in 3 months or return sooner with symptoms or concerns Verbalized understanding and agreed with treatment (2) Cough: Code(s): R05.9 - Cough, unspecified Qualifiers: Cough type: acute Qualified Code(s): R05.1 - Acute cough Plan: Persistent productive cough with occasional yellowish green phlegm since early September Was recently evaluated and treated for bronchitis multiple times Codeine-guaifenesin ordered for cough. Take as prescribed Adequate hydration encouraged Chest x-ray ordered. Will review results and make changes as needed Follow-up with worsening or new symptoms Verbalized understanding and agreed with treatment Orders: Orders XR chest 2V Today R05.9 - Cough, unspecified Medications: New codeine-guaifenesin 10-100 mg/5 mL (G Tussin AC) 7.5 mL PO Q4-6H PRN 118 mL 0RF allergy symptoms 10 days Refilled albuterol sulfate 90 mcg/actuation 2 puffs inhalation Q6H PRN 6.7 grams 0RF sh ortness of breath or wheezing Discontinued diphenhydramine HCl (Benadryl Allergy) Discontinued Reason: Doctor's Order 25 mg PO TID 5 days PRN 15 tabs 0RF allergy symptoms doxycycline hyclate Discontinued Reason: Patient no longer taking 100 mg PO BID 7 days 14 caps 0RF famotidine (Pepcid) Discontinued Reason: Patient no longer taking 40 mg PO BEDTIME 14 days 14 tabs 0RF benzonatate Discontinued Reason: Patient no longer taking 100 mg PO BID PRN 14 caps 0RF cough Coding Level of Care Code Est Pt Level 4 (77913) Diagnoses HTN (hypertension) I10 Acute cough R05.1 Cough type: acute
[2023-11-14 12:19] VITALS: BP 126/80; PULSE 81; RESP 13; TEMP 36.6; O2SAT 99; BMI 47.0
== END 2023-11-14 12:52 | disposition home or self-care (01) ==
PROVIDERS: PCP Nurse Practitioner Family; Visit Provider Nurse Practitioner Family
DX: I10 Essential (primary) hypertension (principal); R05.1 Acute cough
CPT/HCPCS: 99214

== ENCOUNTER 2024-01-17 08:55 | Outpatient (REF) | payer OTHER, SELFPAY ==
--- NOTE | ~2024-01-17 | XR_ITS ---
EXAMINATION: XR CHEST CLINICAL INFORMATION: Cough unspecified. COMPARISON: 03/21/2023 TECHNIQUE: 4 views of the chest. FINDINGS: There is no gross pneumothorax. Heart size is normal. Dextroscoliosis of the thoracic spine with multilevel degenerative changes. No pleural effusion. No new focal consolidation to suggest pneumonia. XR/XR chest 2V IMPRESSION: No evidence of pneumonia.
== END 2024-01-17 08:56 | disposition home or self-care (01) ==
LOC: HO.HMGCX 08:55
PROVIDERS: PCP Nurse Practitioner Family; Visit Provider Nurse Practitioner Family
DX: R05.9 Cough, unspecified (principal)
CPT/HCPCS: 71046

== ENCOUNTER 2024-01-21 07:22 | Outpatient (REF) | payer OTHER, SELFPAY ==
--- NOTE | ~2024-01-21 | XR_ITS ---
EXAMINATION: XR BILATERAL HIPS WITH AP PELVIS CLINICAL INFORMATION: Pain in unspecified hip Patient states left hip pain COMPARISON: None available. TECHNIQUE: AP view of the pelvis and AP and frog lateral of each hip were obtained. FINDINGS: No fracture. Hip joint spaces are maintained. Alignment is anatomic. Sacroiliac joints and pubic symphysis are normal. No abnormal soft tissue calcifications. XR/XR hip BI w PEL1V IMPRESSION: No significant bony abnormality.
== END 2024-01-21 07:23 | disposition home or self-care (01) ==
LOC: HO.XRAY 07:22
PROVIDERS: PCP Nurse Practitioner Family; Visit Provider Physician Assistant
DX: M25.551 Pain in right hip (principal); M25.552 Pain in left hip; G89.29 Other chronic pain
CPT/HCPCS: 73521

== ENCOUNTER 2024-01-21 07:22 | Outpatient (AMB) | payer OTHER, SELFPAY ==
--- NOTE | 2024-01-21 07:27 | A.OFFVIS_ITS ---
Intake Vital Signs 01/21/24 07:28 Height 5 ft 6 in Weight 292 lb BMI 47.1 BP 156/86 H Blood Pressure Location Lt brachial Position Sitting Pulse 82 Intake Visit Reasons: Colonoscopy screening Intake Note: Patient new consult for 2nd Colonoscopy screening. Patient have a Colonoscopy 10 years ago but don not remember where ?? and denies any GI issues. Resort Host Required: No Accompanied by: Self / Same As Patient Allergies pseudoephedrine [From Sudafed] Allergy (Mild, Verified 01/21/24 07:27) Angioedema flonase Allergy (Mild, Uncoded 11/14/23 12:38) angioedema Medication List - Last Reconciled 01/21/24 by Annette Coleman PA-C albuterol sulfate 90 mcg/actuation 2 puffs inhalation Q6H PRN aspirin 81 mg PO DAILY bisacodyl (Dulcolax (bisacodyl)) 20 mg (4 x 5 mg) PO ONCE PRN 1 day budesonide 90 mcg/actuation 1 inh inhalation Q12H 1 month codeine-guaifenesin 10-100 mg/5 mL (G Tussin AC) 7.5 mL PO Q4-6H PRN 10 days losartan-hydrochlorothiazide 100-12.5 mg 1 tab PO DAILY metoprolol succinate ER 50 mg PO DAILY polyethylene glycol 3350 (Miralax) 238 grams PO ONCE PRN 1 day HPI HPI Comments History of Present Illness Details A 48 y/o male due for screening colonoscopy Difficulty losing weight-goes to the gym QOD- x 4 months- has only lost 2 pounds - he is frustrated- appetite is good-he has made dietary modification Bowels are normal Uses inhalers- follows with pcp- cough- he has never seen pulmonary-allergy testing in the past- he reports nothing specific- No PAULETTE- no reflux- Chronic left hip pain-does not interfere with daily activity No known family history GI cancer No nausea, vomiting, hematemesis, hematochezia fever chills PFSH Medical History Anxiety Surgical History No pertinent past surgical history Family History Paternal Grandmother High blood pressure Paternal Grandfather High blood pressure Paternal Grandfather High blood pressure Social History Household Members: Family Household Members Other:: parents Housing: House Alcohol intake: current Alcohol intake frequency: a few times a month Alcohol type: beer Patient Tobacco Use Status: Former Tobacco user Cigarette Packs Per Day: 1 Cigarettes Per Day: 20 Years Smoked: 10 e-Cigarette/Vaping Use: Never Used Second Hand Smoke Exposure: No Substance Use Type: Marijuana service: No Current occupational status: employed 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 Sexual orientation: Unable to collect Gender identity: Unable to collect Cognitive needs: No Hearing needs: No Vision needs: No Review of Systems Const All systems reviewed & are unremarkable except as noted in HPI and below ENT Reports nasal congestion Card Denies chest pain and Denies dyspnea Resp Reports cough and Denies dyspnea GI Denies abdominal pain, Denies hematochezia, Denies change in bowel habits, Denies nausea and Denies vomiting Psych Reports anxiety Physical Exam Vital Signs: Last Vital Signs Pulse 82 01/21/24 07:28 BP 156/86 H 01/21/24 07:28 BMI result Body Mass Index 47.1 Const General: cooperative, healthy appearing, comfortable, no acute distress and alert Nutritional Appearance: overweight Orientation/consciousness: patient oriented x3 Limitations: no limitations Eyes Sclerae: sclerae normal Resp Effort & Inspection: normal respiratory effort and able to speak in complete sentences Auscultation: clear to auscultation bilaterally, no rales, no rhonchi and no wheezes Cardio Rate: regular rate Rhythm: regular rhythm Heart sounds: S1 normal heart sound present and S2 normal heart sound present GI Palpation (GI): Soft to palpation and nontender Auscultation: normal bowel sounds Skin General skin exam: no rashes or lesions noted Neuro General: patient oriented x3 Extrem General: Yes full ROM Psych Appearance: grossly normal and well kempt Mental Status: mental status grossly normal Speech and movement: Normal speech and movement present and Clear speech present Affect: normal affect Attitude: cooperative Thought process: Normal thought process present Thought content: Normal thought content present Results Reviewed Results Reviewed: XR/XR chest 2V IMPRESSION: No acute process seen. Assessment & Plan Assessment & Plan (1) Colon cancer screening: Comment: Very pleasant Gent referred for screening colonoscopy Previous colonoscopy about 10 years ago-nonspecific- in [place] no polyps Discussed procedure, rare risks need for escorted due to anesthesia as well as Code(s): Z12.11 - Encounter for screening for malignant neoplasm of colon Plan: Screening colonoscopy MiraLax Gatorade prep (2) Chronic hip pain: Comment: c/o-chronic left discussed interfering with ADLs-while he is here will get x-ray and informed PCP Code(s): M25.559 - Pain in unspecified hip; G89.29 - Other chronic pain Plan: Hip x-ray will call with results Plan Colonoscopy MiraLax Gatorade prep Hip x-ray Orders: Orders XR hip LT min 2V Today G89.29 - Other chronic pain, M25.559 - Pain in unspecified hip Colonoscopy - GI Use Only Today Z12.11 - Encounter for screening for malignant neoplasm of colon XR hip BI w PEL1V Today G89.29 - Other chronic pain, M25.559 - Pain in unspecified hip Medications: New bisacodyl (Dulcolax (bisacodyl)) Day before procedure @ 12 noon Take 4 tablets by mouth followed by large glass of water 20 mg (4 x 5 mg) PO ONCE 1 day PRN 4 tabs 0RF colonoscopy prep Z12.11 - Encounter for screening for malignant neoplasm of colon polyethylene glycol 3350 (Miralax) Take as directed by mouth the day before your procedure. 238 grams PO ONCE 1 day PRN 238 grams 0RF laxative effect Coding Level of Care Code New Pt Level 3 (48923) Diagnoses Colon cancer screening Z12.11 Chronic hip pain M25.559; G89.29 Time Spent (min) 30
[2024-01-21 07:28] VITALS: BP 156/86; PULSE 82; BMI 47.1
== END 2024-01-21 08:54 | disposition home or self-care (01) ==
PROVIDERS: PCP Nurse Practitioner Family; Visit Provider Physician Assistant
DX: Z12.11 Encounter for screening for malignant neoplasm of colon (principal); M25.559 Pain in unspecified hip; G89.29 Other chronic pain; Z01.818 Encounter for other preprocedural examination
CPT/HCPCS: 99203

== ENCOUNTER 2024-02-13 08:26 | Outpatient (AMB) | payer OTHER, SELFPAY ==
[2024-02-13 08:31] VITALS: BP 154/86; PULSE 77; RESP 14; TEMP 36.3; O2SAT 97; BMI 46.8
--- NOTE | 2024-02-13 08:31 | A.OFFPC_ITS ---
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 Accompanied by: Self / Same As Patient Allergies pseudoephedrine [From Sudafed] Allergy (Mild, Verified 02/13/24 08:41) Angioedema flonase Allergy (Mild, Uncoded 02/13/24 08:41) angioedema Medication List - Last Reconciled 02/13/24 by Trung Sheehan CNP albuterol sulfate 90 mcg/actuation 2 puffs inhalation Q6H PRN aspirin 81 mg PO DAILY bisacodyl (Dulcolax (bisacodyl)) 20 mg (4 x 5 mg) PO ONCE PRN 1 day budesonide 90 mcg/actuation 1 inh inhalation Q12H 1 month losartan-hydrochlorothiazide 100-12.5 mg 1 tab PO DAILY metoprolol succinate ER 50 mg PO DAILY polyethylene glycol 3350 (Miralax) 238 grams PO ONCE PRN 1 day Tobacco use date assessed: 11/14/23 Dental Screening Dental Screen Date: 11/14/23 HPI HPI Comments History of Present Illness Details 49-year-old male presents for hypertensi on follow-up. He admits to taking losartan-HCTZ 10-12.5 mg daily and metoprolol 50 mg daily without adverse reactions. He notes that he has been exercising 3 days a week and making healthy dietary changes. He reports sudden difficulty breathing and left-sided upper chest pain with associated systolic blood pressure of 200 four days ago. His symptoms completely resolved and systolic blood pressure improved to 130 after 10 minutes of sitting down and relaxation. He has not experienced those symptoms since the last time. He offers no complaints and denies acute symptoms at this time. He states that he will be flying to a different State in 2 weeks and that he gets very anxious when flying. He requests a medication to help when flying. [facility] Medical History (Updated 02/13/24 @ 09:41 by Trung Sheehan CNP) Anxiety Surgical History No pertinent past surgical history Family History Paternal Grandmother High blood pressure Paternal Grandfather High blood pressure Paternal Grandfather High blood pressure Other Mental health disorder Social History Household Members: Family Household Members Other:: parents Housing: House Alcohol intake: current Alcohol intake frequency: a few times a month Alcohol type: beer Patient Tobacco Use Status: Former Tobacco user Cigarette Packs Per Day: 1 Cigarettes Per Day: 20 Years Smoked: 10 e-Cigarette/Vaping Use: Never Used Second Hand Smoke Exposure: No Substance Use Type: Marijuana service: No Current occupational status: employed Current occupation: [employer] Sexual orientation: Unable to collect Gender identity: Unable to collect Cognitive needs: No Hearing needs: No Vision needs: No Questionnaire Thrive Questionnaire Date Thrive assessed: 09/15/23 JAMES-7 AMB Questionnaire JAMES-7 Date JAMES - 7 assessed: 09/15/23 Source: Developed by Drs. Gilbert Tomlin, Diana Jacob, Eleazar Maddox and colleagues, with an educational gm from [employer]. Review of Systems Const Details: Const Denies chills, Denies fatigue, Denies fever(s), Denies headache(s) and Denies weakness ENT Denies dizziness and Denies headache(s) Card Denies chest pain, Denies lightheadedness, Denies dyspnea and Denies other (Palpitations) Resp Denies cough, Denies dyspnea, Denies wheezing and Denies other ( shortness of breath) GI Denies abdominal pain, Denies melena, Denies hematochezia, Denies change in bowel habits, Denies dyspepsia and Denies nausea Denies hematuria and Denies dysuria Musc Denies abnormal gait, Denies myalgias, Denies arthralgias, Denies numbness and Denies tingling Skin/Breast Denies rash, Denies unusual bruising and Denies wounds Neuro Denies abnormal gait, Denies dizziness, Denies headache(s), Denies memory loss, Denies numbness, Denies Sensory deficit (Neuro), Denies tingling and Denies weakness Psych Denies anxiety, Denies depression, Denies memory loss Endo Denies cold intolerance, Denies fatigue, Denies heat intolerance, Denies polydipsia and Denies polyuria Aller/Immun Denies wheezing Physical exam (Primary Care) Tobacco/Smoking Status: Tobacco use Status Tobacco use date assessed 11/14/23 02/13/24 08:31 Patient Tobacco Use Status Former Tobacco user 02/13/24 08:31 e-Cigarette/Vaping Use Never Used 02/13/24 08:31 Thrive Assessment: Date of Thrive Assessment Date Thrive assessed 09/15/23 02/13/24 08:31 Const Other: General: no acute distress and well developed Nutritional Appearance: well nourished Orientation/consciousness: patient oriented x3 HENMT Head: Yes normocephalic and Yes atraumatic Eyes General: appearance normal, both eyes and all related structures Pupils: Equal, round and reactive pupils present EOM: EOMs intact bilaterally Resp Effort & Inspection: normal respiratory effort Auscultation: clear to auscultation bilaterally Cardio Rate: regular rate Rhythm: regular rhythm Heart sounds: S1 normal heart sound present, S2 normal heart sound present, no gallops, no murmurs and no rubs GI Palpation (GI): No Abdominal aortic bruit present, Soft to palpation, nontender, No hepatosplenomegaly present and No Rebound tenderness present Auscultation: normal bowel sounds General: Yes no CVA tenderness Back/Spine/Pelvis Back: no CVA tenderness Cervical Spine: cervical ROM normal and No Cervical spine tenderness Thoracic/Lumbar Spine: thoraco-lumbar ROM normal, No pain with thoraco-lumbar ROM, No thoracic spinal tenderness and No lumbar spinal tenderness Extrem General: Yes normal to inspection, No edema and No calf tenderness Skin General: warm and dry. Normal skin color. Normal skin turgor Neuro General: patient oriented x3, gait normal and no focal neuro deficit Cranial nerves: Yes Equal, round and reactive pupils present Cognition (Neuro): normal cognition Gait exam (Neuro): Normal gait present Sensory Exam: No Sensory deficit (Neuro) Psych Appearance: grossly normal Affect: normal affect Attitude: cooperative Thought process: Normal thought process present Assessment and Plan Assessment & Plan (1) HTN (hypertension): Code(s): I10 - Essential (primary) hypertension Plan: Resting blood pressure is 140/90, slightly above goal of less than 140/90 EKG with normal sinus rhythm Will increase losartan-HCTZ to 100-25 mg daily. Advised to take as prescribed Healthy diet and routine exercise encouraged Follow-up in 1 month return sooner with symptoms or concerns Verbalized understanding and agreed with treatment plan (2) Anxiety: Code(s): F41.9 - Anxiety disorder, unspecified Plan: He will be flying to a different State in 2 weeks and that he gets very anxious when flying. He requests a medication to help when flying Ativan 0.5 mg twice daily as needed ordered Advised to take immediately before flying Verbalized understanding and agreed with the plan Medications: New lorazepam (Ativan) 0.5 mg PO BID PRN 4 tabs 0RF anxiety losartan-hydrochlorothiazide 100-25 mg 1 tab PO DAILY 90 days 90 tabs 1RF Discontinued losartan-hydrochlorothiazide 100-12.5 mg Discontinued Reason: Doctor's Order 1 tab PO DAILY 60 tabs 0RF Coding Level of Care Code Est Pt Level 4 (90510) Diagnoses HTN (hypertension) I10 Anxiety F41.9
[2024-02-13 08:45] VITALS: BP 140/90; PULSE 68
== END 2024-02-13 09:29 | disposition home or self-care (01) ==
PROVIDERS: PCP Nurse Practitioner Family; Visit Provider Nurse Practitioner Family
DX: I10 Essential (primary) hypertension (principal); F41.9 Anxiety disorder, unspecified
CPT/HCPCS: 99214

== ENCOUNTER 2024-03-15 08:32 | Outpatient (AMB) | payer OTHER, SELFPAY ==
--- NOTE | 2024-03-15 08:33 | A.OFFPC_ITS ---
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 Allergies pseudoephedrine [From Sudafed] Allergy (Mild, Verified 03/15/24 08:43) Angioedema flonase Allergy (Mild, Uncoded 03/15/24 08:43) angioedema Medication List - Last Reconciled 03/15/24 by Trung Sheehan CNP albuterol sulfate 90 mcg/actuation 2 puffs inhalation Q6H PRN aspirin 81 mg PO DAILY bisacodyl (Dulcolax (bisacodyl)) 20 mg (4 x 5 mg) PO ONCE PRN 1 day budesonide 90 mcg/actuation 1 inh inhalation Q12H 1 month lorazepam (Ativan) 0.5 mg PO BID PRN losartan-hydrochlorothiazide 100-25 mg 1 tab PO DAILY 90 days metoprolol succinate ER 50 mg PO DAILY polyethylene glycol 3350 (Miralax) 238 grams PO ONCE PRN 1 day Tobacco use date assessed: 11/14/23 Dental Screening Dental Screen Date: 11/14/23 HPI HPI Comments History of Present Illness Details 49-year-old male presents for hypertensi on follow-up. He admits to taking losartan-HCTZ 100-25 mg daily and metoprolol 50 mg daily without adverse reactions. He recently returned from 2 weeks trip to [place] and therefore has not been exercising. He has been making healthy dietary changes. He offers no complaints and denies acute symptoms at this time. [facility] Medical History (Updated 02/13/24 @ 09:41 by Trung Sheehan CNP) Anxiety Surgical History No pertinent past surgical history Family History Paternal Grandmother High blood pressure Paternal Grandfather High blood pressure Paternal Grandfather High blood pressure Other Mental health disorder Social History Household Members: Family Household Members Other:: parents Housing: House Alcohol intake: current Alcohol intake frequency: a few times a month Alcohol type: beer Patient Tobacco Use Status: Former Tobacco user Cigarette Packs Per Day: 1 Cigarettes Per Day: 20 Years Smoked: 10 e-Cigarette/Vaping Use: Never Used Second Hand Smoke Exposure: No Substance Use Type: Marijuana service: No Current occupational status: employed Current occupation: [employer] Sexual orientation: Unable to collect Gender identity: Unable to collect Cognitive needs: No Hearing needs: No Vision needs: No Questionnaire PHQ-9 Over the last 2 weeks, how often have you been bothered by any of the following problems? 1. Little interest or pleasure in doing things: not at all 2. Feeling down, depressed, or hopeless: not at all 3. Trouble falling or staying asleep, or sleeping too much: not at all (checking on 98 year old grandfather) 4. Feeling tired or having little energy: not at all 5. Poor appetite or overeating: not at all 6. Feeling bad about yourself - or that you are a failure or have let yourself or your family down: not at all 7. Trouble concentrating on things, such as reading the newspaper or watching television: not at all 8. Moving or speaking so slowly that other people could have noticed. Or the opposite - being so fidgety or restless that you have been moving around a lot more than usual: not at all 9. Thoughts that you would be better off or of hurting yourself in some way: not at all Total score: 0 Depression Screening Interpretation: Negative Depression Screening Done: Yes 14653 - PHQ-9 Billing: Yes Source: Developed by Drs. Gilbert Tomlin, Diana Jacob, Eleazar Maddox and colleagues, with an educational gm from [employer]. Thrive Questionnaire Date Thrive assessed: 03/15/24 I am a: Patient What is your living situation today?: I have a steady place to live Within the past 12 months, did the food you bought not last and you didn't have the money to get more?: Never true Within the past 12 months, did you worry whether your food would run out before you got money to buy more?: Never true Do you have trouble paying for medicines?: No Do you have trouble getting transportation to medical appointments?: No Do you have trouble paying your heating and electricity bill?: No Do you have trouble taking care of your child, family member or friend?: No Do you have trouble with day-to-day activities such as bathing, preparing meals, shopping, managing finances, etc.?: No Are you currently unemployed and looking for a job?: No Are you interested in more education?: No Please select the resources that you would like help with: None Currently or been in a relationship where the following occur: no concerns reported THRIVE Score: 0 AUDIT C Alcohol Use Questionnaire (AUDIT-C) 1. How often do you have a drink containing alcohol?: Monthly or less 3. How often do you have six or more drinks on one occasion?: Never Total Score: 1 Score Reviewed/Action Taken: Yes JAMES-7 AMB Questionnaire JAMES-7 Date JAMES - 7 assessed: 03/15/24 Feeling nervous, anxious, or on edge: 0 = Not at all Not being able to stop or control worryin = Not at all Worrying too much about different things: 0 = Not at all Trouble relaxin = Not at all Being so restless that it is hard to sit still: 0 = Not at all Becoming easily annoyed or irritable: 0 = Not at all Feeling afraid as if something awful might happen: 1 = Several days Total JAMES-7 score (0-4 normal; 5-9 mild; 10-14 moderate; 15-21 severe): 1 Source: Developed by Drs. Gilbert Tomlin, Diana Jacob, Eleazar Maddox and colleagues, with an educational gm from [employer]. JAMES-7 Assessment Billing JAMES-7 Assessment Tool: JAMES-7 Assessment 97254 Review of Systems Const Details: Const Denies chills, Denies fatigue, Denies fever(s), Denies headache(s) and Denies weakness ENT Denies dizziness and Denies headache(s) Card Denies chest pain, Denies lightheadedness, Denies dyspnea and Denies other (Palpitations) Resp Denies cough, Denies dyspnea, Denies wheezing and Denies other ( shortness of breath) GI Denies abdominal pain, Denies melena, Denies hematochezia, Denies change in bowel habits, Denies dyspepsia and Denies nausea Denies hematuria and Denies dysuria Musc Denies abnormal gait, Denies myalgias, Denies arthralgias, Denies numbness and Denies tingling Skin/Breast Denies rash, Denies unusual bruising and Denies wounds Neuro Denies abnormal gait, Denies dizziness, Denies headache(s), Denies memory loss, Denies numbness, Denies Sensory deficit (Neuro), Denies tingling and Denies weakness Psych Denies anxiety, Denies depression, Denies memory loss Endo Denies cold intolerance, Denies fatigue, Denies heat intolerance, Denies polydipsia and Denies polyuria Aller/Immun Denies wheezing Physical exam (Primary Care) Vital Signs: Last Vital Signs Pulse 72 03/15/24 08:34 BP 132/84 03/15/24 08:34 BMI result Body Mass Index 47.8 Tobacco/Smoking Status: Tobacco use Status Tobacco use date assessed 11/14/23 03/15/24 08:34 Patient Tobacco Use Status Former Tobacco user 03/15/24 08:34 e-Cigarette/Vaping Use Never Used 03/15/24 08:34 Depression Screening Interpretation: Negative Thrive Assessment: Date of Thrive Assessment Date Thrive assessed 09/15/23 03/15/24 08:34 Currently or been in a relationship where the following occur: no concerns reported Const Other: General: no acute distress and well developed Nutritional Appearance: well nourished Orientation/consciousness: patient oriented x3 HENMT Head: Yes normocephalic and Yes atraumatic Eyes General: appearance normal, both eyes and all related structures Pupils: Equal, round and reactive pupils present EOM: EOMs intact bilaterally Resp Effort & Inspection: normal respiratory effort Auscultation: clear to auscultation bilaterally Cardio Rate: regular rate Rhythm: regular rhythm Heart sounds: S1 normal heart sound present, S2 normal heart sound present, no gallops, no murmurs and no rubs GI Palpation (GI): No Abdominal aortic bruit present, Soft to palpation, nontender, No hepatosplenomegaly present and No Rebound tenderness present Auscultation: normal bowel sounds General: Yes no CVA tenderness Back/Spine/Pelvis Back: no CVA tenderness Cervical Spine: cervical ROM normal and No Cervical spine tenderness Thoracic/Lumbar Spine: thoraco-lumbar ROM normal, No pain with thoraco-lumbar ROM, No thoracic spinal tenderness and No lumbar spinal tenderness Extrem General: Yes normal to inspection, No edema and No calf tenderness Skin General: warm and dry. Normal skin color. Normal skin turgor Neuro General: patient oriented x3, gait normal and no focal neuro deficit Cranial nerves: Yes Equal, round and reactive pupils present Cognition (Neuro): normal cognition Gait exam (Neuro): Normal gait present Sensory Exam: No Sensory deficit (Neuro) Psych Appearance: grossly normal Affect: normal affect Attitude: cooperative Thought process: Normal thought process present Assessment and Plan Assessment & Plan (1) HTN (hypertension): Code(s): I10 - Essential (primary) hypertension Plan: Blood pressure is 132/84, within goal of less than 140/90 Continue to take losartan-hydrochlorothiazide 100-25 mg daily and metoprolol ER 50 mg daily Low-sodium diet and routine exercise encouraged Follow-up in 3 months or return sooner with symptoms or concerns Verbalized understanding and agreed with treatment plan Coding Level of Care Code Est Pt Level 3 (36734) Diagnoses HTN (hypertension) I10 Additional Codes JAMES-7 Assessment Billing - JAMES-7 Assessment Tool: JAMES-7 Assessment [id number] ([id number])
[2024-03-15 08:34] VITALS: BP 132/84; PULSE 72; O2SAT 97; BMI 47.8
== END 2024-03-15 08:51 | disposition home or self-care (01) ==
PROVIDERS: PCP Nurse Practitioner Family; Visit Provider Nurse Practitioner Family
DX: I10 Essential (primary) hypertension (principal)
CPT/HCPCS: 99213

== ENCOUNTER 2024-06-18 06:54 | Day surgery (SDC) | payer OTHER, SELFPAY ==
[2024-06-16 13:30] VITALS: BMI 47.8
[2024-06-18 07:06] VITALS: BMI 45.8
[2024-06-18 07:23] VITALS: BP 148/97; PULSE 78; RESP 18; TEMP 36.6; O2SAT 97
--- NOTE | 2024-06-18 07:32 | HO.ANESPROP2 ---
[facility] Active Problems Active Problems: All Active Problems Chronic hip pain (Acute) Angioedema (Acute) Vaccine counseling (Acute) Colon cancer screening (Acute) Normal physical examination, routine (Acute) Laboratory tests ordered as part of a complete physical exam (CPE) (Acute) Morbid obesity with BMI of 45.0-49.9, adult (Acute) Cough (Acute) Bronchitis (Acute) HTN (hypertension) (Acute) Congestion of respiratory tract (Acute) Anxiety (Acute) Past Medical History Medical History Bronchitis HTN (hypertension) Anxiety Family History Family History Paternal Grandmother High blood pressure Paternal Grandfather High blood pressure Paternal Grandfather High blood pressure Other Mental health disorder Family history of problems with anesthesia: No Surgical History Surgical History History of microdiscectomy No pertinent past surgical history History of Problems with Anesthesia: No Social History Social History Household Members: Family Household Members Other:: parents Housing: House Are you a primary primary care provider to a significant other at home: No Do you presently have visiting nurse or other home services: No Alcohol intake: current Alcohol intake frequency: a few times a month Alcohol type: beer Patient Tobacco Use Status: Former Tobacco user Cigarette Packs Per Day: 1 Cigarettes Per Day: 20 Years Smoked: 10 e-Cigarette/Vaping Use: Never Used Second Hand Smoke Exposure: No Use of substances other than those prescribed or required for medical reasons: Yes Substance Use Type: Marijuana Substance Use Frequency: Daily Have you been hit, kicked, punched, or otherwise hurt by someone within the past year? If so, by whom?: No Are you DNR?: No Advance Directives: No Advance Directives Information Provided: Yes Recently lost weight without trying: No Nutrition Risks: No Nutritional Risk Poor oral hygiene: No service: No Current occupational status: employed Current occupation: [employer] Sexual orientation: Unable to collect Gender identity: Unable to collect Cognitive needs: No Hearing needs: No Vision needs: No Meds Allergies Allergy/AdvReac Type Severity Reaction Status Date / Time fluticasone [From Flonase] Allergy Severe Angioedema Verified 06/16/24 13:26 pseudoephedrine Allergy Severe Angioedema Verified 06/16/24 13:27 [From Sudafed] Home Medications ?Medication ?Instructions ?Recorded ?Confirmed ?Last Taken ?Type aspirin 81 mg chewable tablet 81 mg PO DAILY 01/02/23 06/18/24 06/15/24 History Exam Height,Weight and Vital Signs: Height 5 ft 6 in Weight 128.593 kg Last Vital Signs Temp 97.9 F 06/18/24 07:23 Pulse 78 06/18/24 07:23 Resp 18 06/18/24 07:23 BP 148/97 H 06/18/24 07:23 Pulse Ox 97 06/18/24 07:23 O2 Del Method Room Air 06/18/24 07:23 Airway Mallampati Class: III TM Dist: >3cm Neck ROM: Full Heart: RRR Lungs: CTA Assessment and Plan Assessment Anesthesia Assessment: Anesthesia Plan Discussed Final Anesthetic Review Family History of Problems with Anesthesia: No History of Problems with Anesthesia: No NPO: Yes ASA Class: III Final Preanesthetic Review: Meds/Allgs Chart Reviewed, Consent Obtained/Reviewed and Anes Risks/Benef Reviewed Patient Risk: Intermediate Procedure Risk: Low Anesthetic Plan Anesthetic Plan: MAC: Disposition: Standard PACU
[2024-06-18] MEDS: Lactated Ringers 1,000 ML 100 ML IVCONT (07:52)
--- NOTE | 2024-06-18 08:20 | MHC.SHP ---
Pre-Procedural Eval Section A - 24 Hr Update-Section A only Date of Service: 06/18/24 Section B - Complete if H&P > 30 days Chief Complaint: screening Relevant Family History (Specify if Yes): No Relevant Social History: Other (specify) Present Medications: see Short Stay Collaborative assessment Medical History: Significant History (Bronchitis HTN (hypertension) Anxiety) History of Previous Operations: Relevant previous surgery/procedure and date(s) (History of microdiscectomy) Allergies: Allergies Allergy/AdvReac Type Severity Reaction Status Date / Time fluticasone [From Flonase] Allergy Severe Angioedema Verified 06/16/24 13:26 pseudoephedrine Allergy Severe Angioedema Verified 06/16/24 13:27 [From Sudafed] Review of Systems Sugical H&P ROS: Negative: Constitution, Cardiovascular, Respiratory, Neurological, Psychiatric, Hem-Onc, Allergic/Immunologic, Gastrointestinal, Genitourinary, Musculoskeletal, Integumentary, Endocrine and Eyes/Ears/Nose/Throat Exam Surgical H&P Exam: Normal: HEENT, Normal: Heart, Normal: Lungs, Normal: Extremities, Normal: Abdomen, Normal: Skin and Normal: Neurological Plan Diagnosis/Plan: Unchanged I have reviewed the history and physical and performed a pertinent physical examination on my patient. No changes have occurred unless specified. colonsocopy for screening Time Spent With Patient Time: Total time managing care of this patient today ____ minutes.
--- NOTE | 2024-06-18 08:47 | HO.OPN-COLON ---
Colonoscopy Operative Note Operative Note Date of Service: 06/18/24 Narrative: Operative Information Procedure Description: Colonoscopy Indication: screening Anesthesia: MAC COLONOSCOPY Instrument: Olympus variable stiffness ADULT scope 190L Colonoscopy Monitoring: Vital signs and clinical assessment, continuous EKG monitoring, Pulse oximetry, Carbon Dioxide monitoring and blood pressure monitoring were done throughout the procedure. Colon withdrawal time was 12 minutes. Procedure: The patient was placed in the left lateral decubitis position and pre-procedure medications were administered. After a digital rectal examination of the ano-rectum, the video colonoscope was inserted into the rectum and advanced through the colon to the cecum/TI. The colonoscope was slowly withdrawn in a retrograde panoramic fashion and the colon mucosa was carefully examined including a retroflexed view of the rectum. Findings and interventions are described below. Procedure Difficulty: easy Findings: Terminal Ileum-normal Cecum: 5-7 mm flat polyp lifted with methylene blue and removed with cold snare Ascending Colon: normal Transverse Colon -normal Descending Colon: 10 mm sessile polyp removed with cold snare - x 1 clip applied for hemostasis Sigmoid Colon: normal Rectum: Retroflexion with small internal hemorrhoids seen, grade I, 10-12 mm sessile polyp injected with methylene blue and removed with cold snare Anorectum - normal Intervention: cold snare and EMR, methylene blue, clip placement Colon preparation: [place] Bowel Preparation Scale Right colon; 2 Transverse colon: 2 Left colon; 2 (0 = Unprepared colon segment with mucosa not seen due to solid stool that cannot be cleared. 1 = Portion of mucosa of the colon segment seen, but other areas of the colon segment not well seen due to staining, residual stool and/or opaque liquid. 2 = Minor amount of residual staining, small fragments of stool and/or opaque liquid, but mucosa of colon segment seen well. 3 = Entire mucosa of colon segment seen well with no residual staining, small fragments of stool or opaque liquid) Impression and Post Procedure Diagnosis: colon polyps internal hemorrhoids Plan: High fiber diet leaflet Avoid straining at stool, epsom salts and sitz bath, anusol supps or cream Repeat Colonoscopy in 3 years due to polyps or earlier if clinically indicated can restart aspirin tomorrow Above findings were reviewed with the patient and relevant handouts were provided if indicated.
[2024-06-18 08:57] VITALS: BP 103/62; PULSE 81; RESP 16; TEMP 36.3; O2SAT 94
[2024-06-18 09:12] VITALS: BP 116/83; PULSE 78; RESP 16; O2SAT 98
[2024-06-18 09:27] VITALS: BP 123/78; PULSE 78; RESP 16; TEMP 36.3; O2SAT 97
--- NOTE | 2024-06-18 10:37 | HO.POSTANES ---
Post Anesthesia Evaluation Post Anesthesia Evaluation Date of Service: 06/18/24 Vital Signs: Vital Signs Temp Pulse Resp BP Pulse Ox O2 Del Method 06/18/24 09:27 97.4 F 78 16 123/78 97 Room Air 06/18/24 09:12 78 16 116/83 98 Room Air 06/18/24 08:57 97.4 F 81 16 103/62 94 Room Air 06/18/24 07:23 97.9 F 78 18 148/97 H 97 Room Air Anesthesia: Monitored Mental Status: Awake Pain Control: Satisfactory Nausea/Vomiting: None Hydration: Adequate Anesthesia-Related Issues: No Anes. Related Issues
== END 2024-06-18 09:55 | disposition home or self-care (01) ==
PROVIDERS: PCP Nurse Practitioner Family; Visit Provider Internal Medicine Gastroenterology
PROC: 0DJD8ZZ Inspection of Lower Intestinal Tract, Via Natural or Artificial Opening Endoscopic (ICD-10-PCS; CPT 45378; principal; 2024-06-18 08:30)
DX: Z12.11 Encounter for screening for malignant neoplasm of colon (principal); D12.0 Benign neoplasm of cecum; D12.4 Benign neoplasm of descending colon; D12.8 Benign neoplasm of rectum; K64.0 First degree hemorrhoids; I10 Essential (primary) hypertension; J40 Bronchitis, not specified as acute or chronic; F41.9 Anxiety disorder, unspecified; G89.29 Other chronic pain; M25.559 Pain in unspecified hip; Z79.82 Long term (current) use of aspirin; Z79.899 Other long term (current) drug therapy; Z88.8 Allergy status to other drugs, medicaments and biological substances; Z87.891 Personal history of nicotine dependence
CPT/HCPCS: 45385; 45381; 88305; J2704

== ENCOUNTER → 2024-06-18 06:54 | Outpatient (BNV) | payer OTHER, SELFPAY | PROVIDERS: PCP Nurse Practitioner Family; Visit Provider Internal Medicine Gastroenterology | DX: Z12.11 Encounter for screening for malignant neoplasm of colon (principal); D12.0 Benign neoplasm of cecum; D12.4 Benign neoplasm of descending colon; D12.8 Benign neoplasm of rectum; K64.0 First degree hemorrhoids | CPT/HCPCS: 45381; 45385 ==

== ENCOUNTER 2024-06-21 08:29 | Outpatient (AMB) | payer OTHER, SELFPAY ==
--- NOTE | 2024-06-21 08:31 | A.OFFPC_ITS ---
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 Required: No Allergies fluticasone [From Flonase] Allergy (Severe, Verified 06/21/24 08:44) Angioedema Medication List - Last Reconciled 06/21/24 by Trung Sheehan CNP albuterol sulfate 90 mcg/actuation 2 puffs inhalation Q6H PRN aspirin 81 mg PO DAILY losartan-hydrochlorothiazide 100-25 mg 1 tab PO DAILY 90 days metoprolol succinate ER 50 mg PO DAILY Tobacco use date assessed: 06/21/24 Dental Screening Dental Screen Date: 06/21/24 Did you have a dental visit in the last 12 months?: No Did you have a dental problem in the last 6 months where you did not have access to dental care?: No Was dental information given to patient?: No HPI HPI Comments History of Present Illness Details 49-year-old male presents for hypertensi on follow-up He admits to taking his medications as prescribed without adverse reactions. He took his medications 45 minutes ago He notes that he checks his BP once or twice daily is usually between 130/80 4 hours after taking his medications He admits to making healthy lifestyle changes including low-sodium diet He states that he had a consultation with [facility] [place]. He can not afford payment for gastric balloon. He request a referral to a dietitian and treatment for weight loss [facility] Medical History Bronchitis HTN (hypertension) Anxiety Surgical History History of microdiscectomy No pertinent past surgical history Family History Paternal Grandmother High blood pressure Paternal Grandfather High blood pressure Paternal Grandfather High blood pressure Other Mental health disorder Social History Household Members: Family Household Members Other:: parents Housing: House Are you a primary care process manager to a significant other at home: No Do you presently have visiting nurse or other home services: No Alcohol intake: current Alcohol intake frequency: a few times a month Alcohol type: beer Patient Tobacco Use Status: Former Tobacco user Cigarette Packs Per Day: 1 Cigarettes Per Day: 20 Years Smoked: 10 e-Cigarette/Vaping Use: Never Used Second Hand Smoke Exposure: No Substance Use Type: Marijuana service: No Current occupational status: employed Current occupation: [employer] Current occupational exposures/hazards: No Sexual orientation: Unable to collect Gender identity: Unable to collect Cognitive needs: No Hearing needs: No Vision needs: No Questionnaire Thrive Questionnaire Date Thrive assessed: 03/15/24 JAMES-7 AMB Questionnaire JAMES-7 Date JAMES - 7 assessed: 03/15/24 Source: Developed by Drs. Gilbert Tomlin, Diana Jacob, Eleazar Maddox and colleagues, with an educational gm from [employer]. Review of Systems Const Details: Const Denies chills, Denies fatigue, Denies fever(s), Denies headache(s) and Denies weakness ENT Denies dizziness and Denies headache(s) Card Denies chest pain, Denies lightheadedness, Denies dyspnea and Denies other (Palpitations) Resp Denies cough, Denies dyspnea, Denies wheezing and Denies other ( shortness of breath) GI Denies abdominal pain, Denies melena, Denies hematochezia, Denies change in bowel habits, Denies dyspepsia and Denies nausea Denies hematuria and Denies dysuria Musc Denies abnormal gait, Denies myalgias, Denies arthralgias, Denies numbness and Denies tingling Skin/Breast Denies rash, Denies unusual bruising and Denies wounds Neuro Denies abnormal gait, Denies dizziness, Denies headache(s), Denies memory loss, Denies numbness, Denies Sensory deficit (Neuro), Denies tingling and Denies weakness Psych Denies anxiety, Denies depression, Denies memory loss Endo Denies cold intolerance, Denies fatigue, Denies heat intolerance, Denies polydipsia and Denies polyuria Aller/Immun Denies wheezing Physical exam (Primary Care) Vital Signs: Last Vital Signs Temp 98.2 F 06/21/24 08:38 Pulse 73 06/21/24 08:38 Resp 16 06/21/24 08:38 BP 134/94 H 06/21/24 08:38 Pulse Ox 97 06/21/24 08:38 Oxygen Delivery Method Room Air 06/21/24 08:38 BMI result Body Mass Index 46.5 Tobacco/Smoking Status: Tobacco use Status Tobacco use date assessed 06/21/24 06/21/24 08:38 Patient Tobacco Use Status Former Tobacco user 06/21/24 08:33 e-Cigarette/Vaping Use Never Used 06/21/24 08:33 Thrive Assessment: Date of Thrive Assessment Date Thrive assessed 03/15/24 06/21/24 08:33 Const Other: General: no acute distress and well developed Nutritional Appearance: well nourished Orientation/consciousness: patient oriented x3 HENMT Head: Yes normocephalic and Yes atraumatic Eyes General: appearance normal, both eyes and all related structures Pupils: Equal, round and reactive pupils present EOM: EOMs intact bilaterally Resp Effort & Inspection: normal respiratory effort Auscultation: clear to auscultation bilaterally Cardio Rate: regular rate Rhythm: regular rhythm Heart sounds: S1 normal heart sound present, S2 normal heart sound present, no gallops, no murmurs and no rubs GI Palpation (GI): No Abdominal aortic bruit present, Soft to palpation, nontender, No hepatosplenomegaly present and No Rebound tenderness present Auscultation: normal bowel sounds General: Yes no CVA tenderness Back/Spine/Pelvis Back: no CVA tenderness Cervical Spine: cervical ROM normal and No Cervical spine tenderness Thoracic/Lumbar Spine: thoraco-lumbar ROM normal, No pain with thoraco-lumbar ROM, No thoracic spinal tenderness and No lumbar spinal tenderness Extrem General: Yes normal to inspection, No edema and No calf tenderness Skin General: warm and dry. Normal skin color. Normal skin turgor Neuro General: patient oriented x3, gait normal and no focal neuro deficit Cranial nerves: Yes Equal, round and reactive pupils present Cognition (Neuro): normal cognition Gait exam (Neuro): Normal gait present Sensory Exam: No Sensory deficit (Neuro) Psych Appearance: grossly normal Affect: normal affect Attitude: cooperative Thought process: Normal thought process present Assessment and Plan Assessment & Plan (1) HTN (hypertension): Code(s): I10 - Essential (primary) hypertension Plan: Blood pressure today is 134/94, slightly above goal of less than 140/90 Continue current treatment regimen Low-sodium diet encouraged Follow-up in 1 month or sooner with symptoms or concerns Verbalized understanding and agreed with the treatment plan (2) Morbid obesity with BMI of 45.0-49.9, adult: Code(s): E66.01 - Morbid (severe) obesity due to excess calories; Z68.42 - Body mass index [BMI] 45.0-49.9, adult Plan: He currently weighs 288 lb, BMI is 46.5 Wellbutrin XL 150 mg daily ordered. Advised to take as prescribed. Instructed on the risks, benefits, and potential adverse reactions of the medication Referred to [facility] [place] Healthy diet and routine exercise encouraged Follow-up in 1 month or sooner with symptoms or concerns Verbalized understanding and agreed with the treatment plan Orders: Referrals Avionics Engineer Nutrition Referral E66.01 - Morbid (severe) obesity due to excess calories, Z68.42 - Body mass index [BMI] 45.0-49.9, adult Medications: New bupropion HCl XL (Wellbutrin XL) 150 mg PO QAM 30 days 30 tabs 3RF Coding Level of Care Code Est Pt Level 4 (28462) Complex EM visit Add On G2211 Diagnoses HTN (hypertension) I10 Morbid obesity with BMI of 45.0-49.9, adult E66.01; Z68.42
[2024-06-21 08:38] VITALS: BP 134/94; PULSE 73; RESP 16; TEMP 36.8; O2SAT 97; BMI 46.5
== END 2024-06-21 08:59 | disposition home or self-care (01) ==
PROVIDERS: PCP Nurse Practitioner Family; Visit Provider Nurse Practitioner Family
DX: I10 Essential (primary) hypertension (principal); E66.01 Morbid (severe) obesity due to excess calories; Z68.42 Body mass index [BMI] 45.0-49.9, adult
CPT/HCPCS: 99214

== ENCOUNTER 2024-07-22 08:10 | Outpatient (AMB) | payer OTHER, SELFPAY ==
--- NOTE | 2024-07-22 08:12 | MHC.PC.OV ---
Vital Signs 07/22/24 08:18 Height 5 ft 6 in Weight 284 lb BMI 45.8 BP 124/80 Blood Pressure Location Lt brachial Position Sitting Respiration 16 Pulse 72 Pulse Source Pulse Oximeter Temp 98.1 F Temp Source Oral Pulse Oximetry (%) 97 Oxygen Delivery Method Room Air Intake Visit Reasons: 1 mos HTN, weight Intake Note: 1 month follow up for HTN and weight. Belly Roller Required: No Allergies fluticasone [From Flonase] Allergy (Severe, Verified 07/22/24 08:23) Angioedema Medication List - Last Reconciled 07/22/24 by Trung Sheehan CNP albuterol sulfate 90 mcg/actuation 2 puffs inhalation Q6H PRN aspirin 81 mg PO DAILY bupropion HCl XL (Wellbutrin XL) 150 mg PO QAM 30 days losartan-hydrochlorothiazide 100-25 mg 1 tab PO DAILY 90 days metoprolol succinate ER 50 mg PO DAILY Tobacco use date assessed: 07/22/24 Dental Screening Dental Screen Date: 07/22/24 Did you have a dental visit in the last 12 months?: No Did you have a dental problem in the last 6 months where you did not have access to dental care?: No Was dental information given to patient?: Patient declined HPI HPI Comments History of Present Illness Details 49-year-old male presents for hypertension follow-up He admits to taking his medications as prescribed without adverse reactions He offers no complaints and denies acute symptoms at this time [facility] Medical History Bronchitis HTN (hypertension) Anxiety Surgical History History of microdiscectomy No pertinent past surgical history Family History Paternal Grandmother High blood pressure Paternal Grandfather High blood pressure Paternal Grandfather High blood pressure Other Mental health disorder Social History Household Members: Family Household Members Other:: parents Housing: House Are you a primary live in caregiver to a significant other at home: No Do you presently have visiting nurse or other home services: No Alcohol intake: current Alcohol intake frequency: a few times a month Alcohol type: beer Patient Tobacco Use Status: Former Tobacco user Cigarette Packs Per Day: 1 Cigarettes Per Day: 20 Years Smoked: 10 e-Cigarette/Vaping Use: Never Used Second Hand Smoke Exposure: No Substance Use Type: Marijuana service: No Current occupational status: employed Current occupation: [employer] Current occupational exposures/hazards: No Sexual orientation: Unable to collect Gender identity: Unable to collect Cognitive needs: No Hearing needs: No Vision needs: No Questionnaire PHQ-9 Over the last 2 weeks, how often have you been bothered by any of the following problems? 1. Little interest or pleasure in doing things: several days 2. Feeling down, depressed, or hopeless: several days 3. Trouble falling or staying asleep, or sleeping too much: not at all 4. Feeling tired or having little energy: not at all 5. Poor appetite or overeating: not at all 6. Feeling bad about yourself - or that you are a failure or have let yourself or your family down: several days 7. Trouble concentrating on things, such as reading the newspaper or watching television: not at all 8. Moving or speaking so slowly that other people could have noticed. Or the opposite - being so fidgety or restless that you have been moving around a lot more than usual: not at all 9. Thoughts that you would be better off or of hurting yourself in some way: not at all Total score: 3 01207 - PHQ-9 Billing: Yes Source: Developed by Drs. Gilbert Tomlin, Diana Jacob, Eleazar Maddox and colleagues, with an educational gm from [employer]. Thrive Questionnaire Date Thrive assessed: 03/15/24 JAMES-7 AMB Questionnaire JAMES-7 Date JAMES - 7 assessed: 03/15/24 Source: Developed by Drs. Gilbert Tomlin, Diana Jacob, Eleazar Maddox and colleagues, with an educational gm from [employer]. Review of Systems Const Details: Const Denies chills, Denies fatigue, Denies fever(s), Denies headache(s) and Denies weakness ENT Denies dizziness and Denies headache(s) Card Denies chest pain, Denies lightheadedness, Denies dyspnea and Denies other (Palpitations) Resp Denies cough, Denies dyspnea, Denies wheezing and Denies other ( shortness of breath) GI Denies abdominal pain, Denies melena, Denies hematochezia, Denies change in bowel habits, Denies dyspepsia and Denies nausea Denies hematuria and Denies dysuria Musc Denies abnormal gait, Denies myalgias, Denies arthralgias, Denies numbness and Denies tingling Skin/Breast Denies rash, Denies unusual bruising and Denies wounds Neuro Denies abnormal gait, Denies dizziness, Denies headache(s), Denies memory loss, Denies numbness, Denies Sensory deficit (Neuro), Denies tingling and Denies weakness Psych Denies anxiety, Denies depression, Denies memory loss Endo Denies cold intolerance, Denies fatigue, Denies heat intolerance, Denies polydipsia and Denies polyuria Aller/Immun Denies wheezing Physical exam (Primary Care) Vital Signs: Last Vital Signs Temp 98.1 F 07/22/24 08:18 Pulse 72 07/22/24 08:18 Resp 16 07/22/24 08:18 BP 124/80 07/22/24 08:18 Pulse Ox 97 07/22/24 08:18 Oxygen Delivery Method Room Air 07/22/24 08:18 BMI result Body Mass Index 45.8 Tobacco/Smoking Status: Tobacco use Status Tobacco use date assessed 07/22/24 07/22/24 08:18 Patient Tobacco Use Status Former Tobacco user 07/22/24 08:18 e-Cigarette/Vaping Use Never Used 07/22/24 08:18 PHQ-9: PHQ-9 Score PHQ-9: Total score 3 07/22/24 08:18 Thrive Assessment: Date of Thrive Assessment Date Thrive assessed 03/15/24 07/22/24 08:18 Const Other: General: no acute distress and well developed Nutritional Appearance: well nourished Orientation/consciousness: patient oriented x3 HENMT Head: Yes normocephalic and Yes atraumatic Eyes General: appearance normal, both eyes and all related structures Pupils: Equal, round and reactive pupils present EOM: EOMs intact bilaterally Resp Effort & Inspection: normal respiratory effort Auscultation: clear to auscultation bilaterally Cardio Rate: regular rate Rhythm: regular rhythm Heart sounds: S1 normal heart sound present, S2 normal heart sound present, no gallops, no murmurs and no rubs GI Palpation (GI): No Abdominal aortic bruit present, Soft to palpation, nontender, No hepatosplenomegaly present and No Rebound tenderness present Auscultation: normal bowel sounds General: Yes no CVA tenderness Back/Spine/Pelvis Back: no CVA tenderness Cervical Spine: cervical ROM normal and No Cervical spine tenderness Thoracic/Lumbar Spine: thoraco-lumbar ROM normal, No pain with thoraco-lumbar ROM, No thoracic spinal tenderness and No lumbar spinal tenderness Extrem General: Yes normal to inspection, No edema and No calf tenderness Skin General: warm and dry. Normal skin color. Normal skin turgor Lesions: no lesions Rashes: no rashes Trauma: no lacerations or abrasions Wounds: no wounds Nails: normal Neuro General: patient oriented x3, gait normal and no focal neuro deficit Cranial nerves: Yes Equal, round and reactive pupils present Cognition (Neuro): normal cognition Gait exam (Neuro): Normal gait present Sensory Exam: No Sensory deficit (Neuro) Psych Appearance: grossly normal Affect: normal affect Attitude: cooperative Thought process: Normal thought process present Assessment and Plan Assessment & Plan (1) HTN (hypertension): Code(s): I10 - Essential (primary) hypertension Plan: Blood pressure is 124/80, within goal of less than 140/90 Continue current treatment regimen Low-sodium diet encouraged Follow-up in 2 months for an extended physical exam or sooner with symptoms or concerns Verbalized understanding and agreed with the plan (2) Laboratory tests ordered as part of a complete physical exam (CPE): Code(s): Z00.00 - Encounter for general adult medical examination without abnormal findings Plan: Fasting labs ordered in preparation of a complete physical exam. Advised to fast for at least 10 hours before getting labs drawn. May drink water Verbalized understanding and agreed with treatment plan. Orders: Orders TSH reflex Free T4 Today Z00.00 - Encounter for general adult medical examination without abnormal findings UA CC w/rflx Micro + Cult Today Z00.00 - Encounter for general adult medical examination without abnormal findings PSA, Ultra Sensitive Today Z00.00 - Encounter for general adult medical examination without abnormal findings Complete Blood Count Auto Diff Today Z00.00 - Encounter for general adult medical examination without abnormal findings Comprehensive [place]. Panel Fast Today Z00.00 - Encounter for general adult medical examination without abnormal findings Lipid Panel Today Z00.00 - Encounter for general adult medical examination without abnormal findings Microalbumin, Random (w Creat) Today Z00.00 - Encounter for general adult medical examination without abnormal findings Coding Level of Care Code Est Pt Level 3 (91823) Diagnoses HTN (hypertension) I10 Laboratory tests ordered as part of a complete physical exam (CPE) Z00.00
[2024-07-22 08:18] VITALS: BP 124/80; PULSE 72; RESP 16; TEMP 36.7; O2SAT 97; BMI 45.8
== END 2024-07-22 08:36 | disposition home or self-care (01) ==
PROVIDERS: PCP Nurse Practitioner Family; Visit Provider Nurse Practitioner Family
DX: I10 Essential (primary) hypertension (principal); Z00.00 Encounter for general adult medical examination without abnormal findings

== ENCOUNTER → 2024-07-22 08:10 | Outpatient (BNVA) | payer OTHER, SELFPAY | PROVIDERS: PCP Nurse Practitioner Family; Visit Provider Nurse Practitioner Family | DX: Z00.00 Encounter for general adult medical examination without abnormal findings (principal); I10 Essential (primary) hypertension | CPT/HCPCS: 96127 ==

== ENCOUNTER 2024-10-19 07:52 | Outpatient (AMB) | payer OTHER, SELFPAY ==
--- NOTE | 2024-10-19 07:54 | MHC.PC.OV ---
Vital Signs 10/19/24 08:00 10/19/24 08:16 Height 5 ft 6 in Weight 278 lb 8 oz BMI 44.9 BP 146/87 H 136/90 H Blood Pressure Location Rt brachial Lt brachial Position Sitting Sitting Respiration 16 Pulse 63 Pulse Source Pulse Oximeter Temp 98.2 F Temp Source Oral Pulse Oximetry (%) 98 Oxygen Delivery Method Room Air Intake Visit Reasons: Annual PE Intake Note: patient here for CPE [place] [employer] Loom Required: No Allergies fluticasone [From Flonase] Allergy (Severe, Verified 10/19/24 08:19) Angioedema Medication List - Last Reconciled 10/19/24 by Trung Sheehan CNP albuterol sulfate 90 mcg/actuation 2 puffs inhalation Q6H PRN aspirin 81 mg PO DAILY bupropion HCl XL (Wellbutrin XL) 150 mg PO QAM 30 days losartan-hydrochlorothiazide 100-25 mg 1 tab PO DAILY 90 days metoprolol succinate ER 50 mg PO DAILY Tobacco use date assessed: 10/19/24 Dental Screening Dental Screen Date: 10/19/24 Did you have a dental visit in the last 12 months?: No Did you have a dental problem in the last 6 months where you did not have access to dental care?: No Was dental information given to patient?: Patient declined HPI HPI Comments History of Present Illness Details 49-year-old male presents for an extended physical exam. He did not get lab work done for this visit as planned. Acute issue(s) - Reports weak erection during sexual intercourse for the past 4 months. Past Medical History - HTN: on losartan-HCTZ 100-25 mg daily and metoprolol succinae 50 mg daily - Morbid obesity: on Welbutrin 150 mg QAM - Myopia OS and hyperopia OD: corrected by prescription glasses - History of difficulty breathing post covid vaccine 12/2019: on albuterol inhaler Surgical History - Microdiscectomy Social History - Former smoker, quit in 1998. Does not vape. Drinks 2-3 beers monthly. Smokes 1-2 joints cannabis daily - Has been making healthy dietary choices. Exercises routinely (cardio weekly). Generally sleep well Health maintenance - Last eye exam was 3 years ago. Referred to [facility] for routine eye exam - Last dental visit was 3 years ago; encouraged to schedule an appointment with his dentist for routine dental care. - Last tetanus vaccine was 5 years ago - Received one dose of Shingrix. Will get second dose after the holidays - Has not been vaccinated for the flu this season; vaccine administered at this visit - Last colonoscopy was with [facility] on 06/18/2024; due in 3 years [facility] Medical History Bronchitis HTN (hypertension) Anxiety Surgical History History of microdiscectomy No pertinent past surgical history Family History Paternal Grandmother High blood pressure Paternal Grandfather High blood pressure Paternal Grandfather High blood pressure Other Mental health disorder Social History Household Members: Family Household Members Other:: parents Housing: House Are you a primary critical care paramedic to a significant other at home: No Do you presently have visiting nurse or other home services: No Alcohol intake: current Alcohol intake frequency: a few times a month Alcohol type: beer Patient Tobacco Use Status: Former Tobacco user Cigarette Packs Per Day: 1 Cigarettes Per Day: 20 Years Smoked: 10 e-Cigarette/Vaping Use: Never Used Second Hand Smoke Exposure: No Substance Use Type: Marijuana service: No Current occupational status: employed 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 1. Little interest or pleasure in doing things: several days 2. Feeling down, depressed, or hopeless: not at all 3. Trouble falling or staying asleep, or sleeping too much: not at all 4. Feeling tired or having little energy: not at all 5. Poor appetite or overeating: not at all 6. Feeling bad about yourself - or that you are a failure or have let yourself or your family down: not at all 7. Trouble concentrating on things, such as reading the newspaper or watching television: not at all 8. Moving or speaking so slowly that other people could have noticed. Or the opposite - being so fidgety or restless that you have been moving around a lot more than usual: not at all 9. Thoughts that you would be better off or of hurting yourself in some way: not at all Total score: 1 Depression Screening Interpretation: Negative Depression Screening Done: Yes 51523 - PHQ-9 Billing: Yes Source: Developed by Drs. Gilbert Tomlin, Diana Jacob, Eleazar Maddox and colleagues, with an educational gm from [employer]. Thrive Questionnaire Date Thrive assessed: 10/19/24 I am a: Patient What is your living situation today?: I have a steady place to live Within the past 12 months, did the food you bought not last and you didn't have the money to get more?: Sometimes True Within the past 12 months, did you worry whether your food would run out before you got money to buy more?: Often true Do you have trouble paying for medicines?: No Do you have trouble getting transportation to medical appointments?: No Do you have trouble paying your heating and electricity bill?: No Do you have trouble taking care of your child, family member or friend?: No Do you have trouble with day-to-day activities such as bathing, preparing meals, shopping, managing finances, etc.?: No Are you currently unemployed and looking for a job?: No Are you interested in more education?: No Please select the resources that you would like help with: Food Currently or been in a relationship where the following occur: No concerns reported THRIVE Score: 2 AUDIT C Alcohol Use Questionnaire (AUDIT-C) 1. How often do you have a drink containing alcohol?: Monthly or less 2. How many drinks containing alcohol do you have on a typical day when you are drinking?: 1 or 2 3. How often do you have six or more drinks on one occasion?: Never Total Score: 1 Score Reviewed/Action Taken: Yes JAMES-7 AMB Questionnaire JAMES-7 Date JAMES - 7 assessed: 10/19/24 Feeling nervous, anxious, or on edge: 0 = Not at all Not being able to stop or control worryin = Not at all Worrying too much about different things: 0 = Not at all Trouble relaxin = Not at all Being so restless that it is hard to sit still: 0 = Not at all Becoming easily annoyed or irritable: 0 = Not at all Feeling afraid as if something awful might happen: 0 = Not at all Total JAMES-7 score (0-4 normal; 5-9 mild; 10-14 moderate; 15-21 severe): 0 Source: Developed by Drs. Gilbert Tomlin, Diana Jacob, Eleazar Maddox and colleagues, with an educational gm from [employer]. JAMES-7 Assessment Billing JAMES-7 Assessment Tool: JAMES-7 Assessment 83285 Review of Systems Const Details: Denies chills, Denies fatigue, Denies fever(s), Denies headache(s) and Denies weakness HEENT Denies change in vision, Denies dizziness, Denies headache(s), Denies hearing loss, Denies nasal congestion, Denies sinus pain, Denies sinus pressure and Denies sore throat Card Denies chest pain, Denies lightheadedness, Denies dyspnea and Denies other (palpitations) Resp Denies cough, Denies dyspnea and Denies wheezing GI Denies abdominal pain, Denies melena, Denies hematochezia, Denies change in bowel habits, Denies dyspepsia and Denies nausea Reports erectile dysfunction, Denies hematuria and Denies dysuria Musc Denies abnormal gait, Denies myalgias, Denies arthralgias, Denies numbness and Denies tingling Skin/Breast Denies rash, Denies unusual bruising and Denies wounds Neuro Denies abnormal gait, Denies dizziness, Denies headache(s), Denies memory loss, Denies numbness, Denies Sensory deficit (Neuro), Denies tingling and Denies weakness Psych Denies anxiety, Denies depression and Denies memory loss Endo Denies cold intolerance, Denies fatigue, Denies heat intolerance, Denies polydipsia and Denies polyuria Gabino/Lymph Denies easy bleeding and Denies easy bruising Aller/Immun Denies wheezing Physical exam (Primary Care) Vital Signs: Last Vital Signs Temp 98.2 F 10/19/24 08:00 Pulse 63 10/19/24 08:00 Resp 16 10/19/24 08:00 BP 136/90 H 10/19/24 08:16 Pulse Ox 98 10/19/24 08:00 Oxygen Delivery Method Room Air 10/19/24 08:00 BMI result Body Mass Index 44.9 Tobacco/Smoking Status: Tobacco use Status Tobacco use date assessed 10/19/24 10/19/24 08:00 Patient Tobacco Use Status Former Tobacco user 10/19/24 07:57 e-Cigarette/Vaping Use Never Used 10/19/24 07:57 PHQ-9: PHQ-9 Score PHQ-9: Total score 1 10/19/24 08:05 Depression Screening Interpretation: Negative Thrive Assessment: Date of Thrive Assessment Date Thrive assessed 10/19/24 10/19/24 07:57 Currently or been in a relationship where the following occur: No concerns reported Const Other: General: no acute distress, well developed, alert and awake Nutritional Appearance: well nourished Orientation/consciousness: patient oriented x3 HENMT Head: Yes normocephalic and Yes atraumatic Ears: hearing grossly normal bilaterally and TM's normal bilaterally General nose exam: Normal external nose present and Normal nares present Mouth: Normal oral and palatal mucosa present and moist mucous membranes Teeth and gingiva: dentition normal Throat: Yes oropharynx normal Eyes Pupils: Equal, round and reactive pupils present and Pupil accommodation reflex normal EOM: EOMs intact bilaterally Neck Neck: Yes normal visual inspection, Yes no lymphadenopathy and Yes trachea midline Thyroid: Thyroid normal Carotids: no bruits Lymphatic: no lymphadenopathy noted Chest Chest palpation & inspection: normal inspection of the chest Resp Effort & Inspection: normal respiratory effort Auscultation: clear to auscultation bilaterally Cardio Rate: regular rate Rhythm: regular rhythm Heart sounds: S1 normal heart sound present, S2 normal heart sound present, no gallops, no murmurs and no rubs Bruits: no abdominal aortic bruits and no carotid bruits GI Palpation (GI): No Abdominal aortic bruit present, Soft to palpation, nontender, No hepatosplenomegaly present and No Rebound tenderness present Auscultation: normal bowel sounds General: Yes no CVA tenderness Back/Spine/Pelvis Back: no CVA tenderness Cervical Spine: cervical ROM normal and No Cervical spine tenderness Thoracic/Lumbar Spine: thoraco-lumbar ROM normal, No pain with thoraco-lumbar ROM, No thoracic spinal tenderness and No lumbar spinal tenderness Skin General: warm and dry. Normal skin color. Normal skin turgor Lesions: no lesions Rashes: no rashes Trauma: no lacerations or abrasions Wounds: no wounds Nails: normal Neuro General: patient oriented x3, gait normal and CN's II-XI intact bilaterally Cranial nerves: Yes Equal, round and reactive pupils present Cognition (Neuro): normal cognition Gait exam (Neuro): Normal gait present Motor exam (neuro): 5/5 motor strength present throughout Sensory Exam: No Sensory deficit (Neuro) Deep tendon reflexes (DTR's): Right patellar reflex intensity grade: 2+ and Left patellar reflex intensity grade: 2+ Extrem General: Yes normal to inspection, No edema and No calf tenderness Psych Appearance: grossly normal Affect: normal affect Attitude: cooperative Thought process: Normal thought process present Office Procedures Flu Questionnaire Does the patient have a severe egg allergy?: No Does the patient have severe life threatening allergies?: No Does the patient have a fever or illness today?: No Has the patient ever had Guillain-[place] Syndrome?: No Has the patient ever had any past reaction to a flu shot?: No Immunizations Fluarix Triv [id number] (PF) 45 mcg (15 mcg x 3)/0.5 mL IM syringe Performing Provider: Trung Sheehan CNP Performing Location: [facility] Administered by: Jessi Gillespie RN on 10/19/24 08:44 Dose Route Admin Location Dispensed Lot Number Expiration Date [facility] Fine Artist 0.5 mL IM Left Deltoid 0.5 mL [id number] 04/25/25 01772-820-29 [employer] VIS Given Date VIS Provided VIS Publication Date 10/19/24 Single Vaccine 21 Eligibility Eligibility Date Funding Source Not [facility] Eligible 10/19/24 Private Coding Level of Care Code Est Pt Level 4 (72723) Est Pt Prev Care 40-64y(25351) Diagnoses Normal physical examination, routine Z00.00 HTN (hypertension) I10 Morbid obesity with BMI of 45.0-49.9, adult E66.01; Z68.42 Erectile dysfunction N52.9 Flu vaccine need Z23 Myopia H52.10 Hyperopia H52.00 Eye exam, routine Z01.00 Additional Codes JAMES-7 Assessment Billing - JAMES-7 Assessment Tool: JAMES-7 Assessment 33046 ([id number]) PHQ-9 - 90606 - PHQ-9 Billing: Yes ([id number]) Assessment & Plan Assessment & Plan (1) Normal physical examination, routine: Code(s): Z00.00 - Encounter for general adult medical examination without abnormal findings Category: Medical Plan: No significant physical limitation noted. Advised to get lab work done and follow-up in 2 months for hypertension and labs review or sooner with symptoms or concerns. Verbalized understanding and agreed with treatment plan. (2) HTN (hypertension): Code(s): I10 - Essential (primary) hypertension Category: Medical Plan: Resting blood pressure is 136/90, slightly above goal of less than 140/90. Continue current treatment regimen. Low-sodium diet encouraged. Follow-up in 2 months. Verbalized understanding and agreed with the plan. (3) Morbid obesity with BMI of 45.0-49.9, adult: Code(s): E66.01 - Morbid (severe) obesity due to excess calories; Z68.42 - Body mass index [BMI] 45.0-49.9, adult Category: Medical Plan: He currently weighs 278 lb, BMI is 44.9. He was referred to [facility] weight management clinic last year; however, he did not establish due to his busy work schedule and was not able to do in-person weight management appointments. He has lost 10 lb since he started taking Wellbutrin 4 months ago. He notes that Wellbutrin also clears his mood and mind. Will increase Wellbutrin to 150 mg twice daily; advised to take as prescribed. Healthy diet and routine exercise encouraged. Referred to [facility] dietitian as requested. (4) Erectile dysfunction: Code(s): N52.9 - Male erectile dysfunction, unspecified Category: Medical Plan: Erectile dysfunction for the past 4 months. Will check testosterone level and make changes as needed. May refer to Urology. Follow-up with worsening or new symptoms verbalized understanding and agreed with the plan. (5) Flu vaccine need: Code(s): Z23 - Encounter for immunization Category: Medical Plan: Influenza vaccine administered today. (6) Myopia: Code(s): H52.10 - Myopia, unspecified eye Category: Medical Plan: Myopia of the left eye and hyperopia of the right eye. He wears prescription glasses. Last eye exam was 3 years ago. Referred to [facility] for routine eye exam. (7) Hyperopia: Code(s): H52.00 - Hypermetropia, unspecified eye Category: Medical Plan: Plan as above. (8) Eye exam, routine: Code(s): Z01.00 - Encounter for examination of eyes and vision without abnormal findings Category: Medical Plan: Plan as above. Orders: Orders Testosterone, Free/Total Today N52.9 - Male erectile dysfunction, unspecified Influenza [id number] Immunization Today Z23 - Encounter for immunization Referrals Ophthalmology Referral H52.00 - Hypermetropia, unspecified eye, H52.10 - Myopia, unspecified eye, Z01.00 - Encounter for examination of eyes and vision without abnormal findings Nutrition/Dietitian Referral E66.01 - Morbid (severe) obesity due to excess calories, Z68.42 - Body mass index [BMI] 45.0-49.9, adult Medications: Changed From bupropion HCl XL (Wellbutrin XL) 150 mg PO QAM 30 days 30 tabs 3RF To bupropion HCl XL (Wellbutrin XL) 150 mg PO BID 30 days 60 tabs 3RF
[2024-10-19 08:00] VITALS: BP 146/87; PULSE 63; RESP 16; TEMP 36.8; O2SAT 98; BMI 44.9
[2024-10-19 08:16] VITALS: BP 136/90
== END 2024-10-19 08:43 | disposition home or self-care (01) ==
PROVIDERS: PCP Nurse Practitioner Family; Visit Provider Nurse Practitioner Family
DX: Z00.00 Encounter for general adult medical examination without abnormal findings (principal); I10 Essential (primary) hypertension; E66.01 Morbid (severe) obesity due to excess calories; Z68.42 Body mass index [BMI] 45.0-49.9, adult; N52.9 Male erectile dysfunction, unspecified; Z23 Encounter for immunization; H52.12 Myopia, left eye; H52.01 Hypermetropia, right eye

== ENCOUNTER → 2024-10-19 07:52 | Outpatient (BNVA) | payer OTHER, SELFPAY | PROVIDERS: PCP Nurse Practitioner Family; Visit Provider Nurse Practitioner Family | DX: Z00.00 Encounter for general adult medical examination without abnormal findings (principal); Z23 Encounter for immunization; I10 Essential (primary) hypertension; E66.01 Morbid (severe) obesity due to excess calories; Z68.42 Body mass index [BMI] 45.0-49.9, adult; N52.9 Male erectile dysfunction, unspecified; H52.12 Myopia, left eye; H52.01 Hypermetropia, right eye | CPT/HCPCS: 90471; 90656; 96127 ==

== ENCOUNTER 2024-10-19 08:46 | Outpatient (REF) | payer OTHER, SELFPAY ==
[2024-10-19 11:13] LABS: MANUAL DIFF FLAG NO
[2024-10-19 11:16] LABS: Appearance Urine Clear; Color Urine Yellow; Glucose Urine UA Negative (Negative); Leukocyte Esterase Urine Negative (Negative); Nitrite Urine Negative (Negative); UMIC TRIGGER UACC YES; Urine Blood Trace (Negative); Urine Ketones Negative (Negative); Urine Protein Negative (Neg-Trace)
[2024-10-19 11:20] LABS: Bacteria Urine None Seen (None Seen); Hyaline Casts Urine 0-2 /LPF (0-2); Squamous Epithelial Cell Urine 0-2 /HPF (0-2); WBC Urine 0-5 /HPF (0-5)
[2024-10-19 11:38] LABS: Basophils Absolute Auto 0.1 X10*3/uL (0.0-0.2); Basophils Percent Auto 0.8 % (0-2); Eosinophils Absolute Auto 0.1 X10*3/uL (0.0-0.4); Hematocrit 46.9 % (42.0-52.0); Hemoglobin 17.1 g/dl (14.0-18.0); Imm Gran Abs Auto 0.04 X10*3/uL (0.00-0.03); Imm Gran Pct Auto 0.4 % (0.0-0.4); Lymphocytes Absolute Auto 2.9 X10*3/uL (1.2-4.9); Lymphocytes Percent Auto 30.3 % (20-40); Mean Corpuscular HGB Conc 36.5 g/dl (31.0-36.0); Mean Corpuscular Hemoglobin 32.2 pg (27.0-33.0); Mean Corpuscular Volume 88.3 fL (80.0-98.0); Monocytes Percent Auto 9.9 % (2-11); Neutrophils Absolute Auto 5.6 x10*3/uL (2.0-8.3); Neutrophils Percent Auto 57.6 % (45-73); Platelet Count 251 X10*3/uL (160-400); Red Blood Count 5.31 X10*6/uL (4.60-5.80); White Blood Count 9.7 X10*3/uL (4.8-10.8)
[2024-10-19 12:00] LABS: Alanine Aminotransferase 36 U/L (0-40); Albumin Level 4.4 g/dL (3.5-5.0); Alkaline Phosphatase 57 U/L (39-117); Anion Gap 11 (12-20); Aspartate Amino Transferase 23 U/L (5-37); Bilirubin Total 0.7 mg/dL (0.0-1.0); Blood Urea Nitrogen 15 mg/dL (9-16); Calcium 9.5 mg/dL (8.4-10.2); Carbon Dioxide 29 mmol/L (22-29); Chloride 105 mmol/L (96-108); Cholesterol 168 mg/dL (<200); Estimated Glomerular Filt Rate > 60; Glucose Fasting 96 mg/dL (60-99); HDL Cholesterol 37 mg/dL (>40); LDL Cholesterol Calculated 111 mg/dL (<100); Potassium 3.3 mmol/L (3.3-5.1); Sodium 142 mmol/L (135-145); Total Protein 7.1 g/dL (6.5-8.0); Triglycerides 103 mg/dL (<150)
[2024-10-19 12:04] LABS: Creatinine Urine 136.15 mg/dL
[2024-10-19 12:40] LABS: TSH reflex Free T4 2.84 uIU/mL (0.32-4.0)
[2024-10-24 15:24] LABS: PSA, Ultra Sensitive 0.91 ng/mL
[2024-10-24 15:43] LABS: Testosterone, Free 62.2 pg/mL (35.0-155.0); Testosterone, Total 377 ng/dL (250-1100)
== END 2024-10-19 08:47 | disposition home or self-care (01) ==
LOC: HO.WFDLDS 08:46
PROVIDERS: Visit Provider Nurse Practitioner Family
DX: Z00.00 Encounter for general adult medical examination without abnormal findings (principal); N52.9 Male erectile dysfunction, unspecified; Z12.5 Encounter for screening for malignant neoplasm of prostate
CPT/HCPCS: 36415; 80053; 80061; 81001; 82043; 82570; 84153; 84402; 84403; 84443; 85025

== ENCOUNTER 2024-12-23 08:16 | Outpatient (AMB) | payer OTHER, SELFPAY ==
--- NOTE | 2024-12-23 08:19 | A.OFFPC_ITS ---
Vital Signs 12/23/24 08:24 Height 5 ft 6 in Weight 278 lb BMI 44.9 BP 129/64 Blood Pressure Location Rt brachial Position Sitting Respiration 16 Pulse 66 Pulse Source Pulse Oximeter Temp 97.9 F Temp Source Oral Pulse Oximetry (%) 98 Oxygen Delivery Method Room Air Intake Visit Reasons: 2 mos HTN, labs review Intake Note: patient here for follow up on HTN and lab review Service Provider Required: No Allergies fluticasone [From Flonase] Allergy (Severe, Verified 12/23/24 08:35) Angioedema Medication List - Last Reconciled 12/23/24 by Trung Sheehan, AFSHAN albuterol sulfate 90 mcg/actuation 2 puffs inhalation Q6H PRN aspirin 81 mg PO DAILY bupropion HCl XL (Wellbutrin XL) 150 mg PO BID 30 days losartan-hydrochlorothiazide 100-25 mg 1 tab PO DAILY 90 days metoprolol succinate ER 50 mg PO DAILY 30 days Tobacco use date assessed: 12/23/24 Dental Screening Dental Screen Date: 10/19/24 Did you have a dental visit in the last 12 months?: No Did you have a dental problem in the last 6 months where you did not have access to dental care?: No Was dental information given to patient?: Patient declined HPI HPI Comments History of Present Illness Details 49-year-old male presents for hypertensi on and review of recent lab results follow-up. He admits to taking his medications as prescribed without adverse reactions. He has been making healthy dietary choices, including low sodium diet. He has not experienced ED recently. However, his partner has been out of the country for the past one and half month. He denies acute symptoms at this time. [facility] Medical History Bronchitis HTN (hypertension) Anxiety Surgical History History of microdiscectomy No pertinent past surgical history Family History Paternal Grandmother High blood pressure Paternal Grandfather High blood pressure Paternal Grandfather High blood pressure Other Mental health disorder Social History Household Members: Family Household Members Other:: parents Housing: House Are you a primary animal daycare provider to a significant other at home: No Do you presently have visiting nurse or other home services: No Alcohol intake: current Alcohol intake frequency: a few times a month Alcohol type: beer Patient Tobacco Use Status: Former Tobacco user Cigarette Packs Per Day: 1 Cigarettes Per Day: 20 Years Smoked: 10 e-Cigarette/Vaping Use: Never Used Second Hand Smoke Exposure: No Substance Use Type: Marijuana service: No Current occupational status: employed Current occupation: [employer] Current occupational exposures/hazards: No Sexual orientation: Unable to collect Gender identity: Unable to collect Cognitive needs: No Hearing needs: No Vision needs: No Questionnaire PHQ-9 Over the last 2 weeks, how often have you been bothered by any of the following problems? 1. Little interest or pleasure in doing things: not at all 2. Feeling down, depressed, or hopeless: not at all 3. Trouble falling or staying asleep, or sleeping too much: not at all 4. Feeling tired or having little energy: not at all 5. Poor appetite or overeating: not at all 6. Feeling bad about yourself - or that you are a failure or have let yourself or your family down: not at all 7. Trouble concentrating on things, such as reading the newspaper or watching television: not at all 8. Moving or speaking so slowly that other people could have noticed. Or the opposite - being so fidgety or restless that you have been moving around a lot more than usual: not at all 9. Thoughts that you would be better off or of hurting yourself in some way: not at all Total score: 0 Depression Screening Interpretation: Negative Depression Screening Done: Yes Source: Developed by Drs. Gilbert Tomlin, Diana Jacob, Eleazar Maddox and colleagues, with an educational gm from [employer]. Thrive Questionnaire Date Thrive assessed: 12/16/24 I am a: Patient What is your living situation today?: I have a steady place to live Within the past 12 months, did the food you bought not last and you didn't have the money to get more?: Never true Within the past 12 months, did you worry whether your food would run out before you got money to buy more?: Never true Do you have trouble paying for medicines?: Yes Do you have trouble getting transportation to medical appointments?: No Do you have trouble paying your heating and electricity bill?: No Do you have trouble taking care of your child, family member or friend?: No Do you have trouble with day-to-day activities such as bathing, preparing meals, shopping, managing finances, etc.?: No Are you currently unemployed and looking for a job?: No Are you interested in more education?: No Please select the resources that you would like help with: None Currently or been in a relationship where the following occur: No concerns reported THRIVE Score: 0 AUDIT C Alcohol Use Questionnaire (AUDIT-C) 1. How often do you have a drink containing alcohol?: Never Total Score: 0 JAMES-7 AMB Questionnaire JAMES-7 Date JAMES - 7 assessed: 12/23/24 Feeling nervous, anxious, or on edge: 0 = Not at all Not being able to stop or control worryin = Not at all Worrying too much about different things: 0 = Not at all Trouble relaxin = Not at all Being so restless that it is hard to sit still: 0 = Not at all Becoming easily annoyed or irritable: 0 = Not at all Feeling afraid as if something awful might happen: 0 = Not at all Total JAMES-7 score (0-4 normal; 5-9 mild; 10-14 moderate; 15-21 severe): 0 Source: Developed by Drs. Gilbert Tomlin, Diana Jacob, Eleazar Maddox and colleagues, with an educational gm from [employer]. Review of Systems Const Details: Const Denies chills, Denies fatigue, Denies fever(s), Denies headache(s) and Denies weakness ENT Denies dizziness and Denies headache(s) Card Denies chest pain, Denies lightheadedness, Denies dyspnea and Denies other (Palpitations) Resp Denies cough, Denies dyspnea, Denies wheezing and Denies other ( shortness of breath) GI Denies abdominal pain, Denies melena, Denies hematochezia, Denies change in bowel habits, Denies dyspepsia and Denies nausea Denies hematuria and Denies dysuria Musc Denies abnormal gait, Denies myalgias, Denies arthralgias, Denies numbness and Denies tingling Skin/Breast Denies rash, Denies unusual bruising and Denies wounds Neuro Denies abnormal gait, Denies dizziness, Denies headache(s), Denies memory loss, Denies numbness, Denies Sensory deficit (Neuro), Denies tingling and Denies weakness Psych Denies anxiety, Denies depression, Denies memory loss Endo Denies cold intolerance, Denies fatigue, Denies heat intolerance, Denies polydipsia and Denies polyuria Aller/Immun Denies wheezing Physical exam (Primary Care) Vital Signs: Last Vital Signs Temp 97.9 F 12/23/24 08:24 Pulse 66 12/23/24 08:24 Resp 16 12/23/24 08:24 BP 129/64 12/23/24 08:24 Pulse Ox 98 12/23/24 08:24 Oxygen Delivery Method Room Air 12/23/24 08:24 BMI result Body Mass Index 44.9 Tobacco/Smoking Status: Tobacco use Status Tobacco use date assessed 12/23/24 12/23/24 08:28 Patient Tobacco Use Status Former Tobacco user 12/23/24 08:22 e-Cigarette/Vaping Use Never Used 12/23/24 08:22 PHQ-9: PHQ-9 Score PHQ-9: Total score 0 12/23/24 08:22 Depression Screening Interpretation: Negative Thrive Assessment: Date of Thrive Assessment Date Thrive assessed 12/16/24 12/23/24 08:22 Currently or been in a relationship where the following occur: No concerns reported Const Other: General: no acute distress and well developed Nutritional Appearance: well nourished Orientation/consciousness: patient oriented x3 HENMT Head: Yes normocephalic and Yes atraumatic Eyes General: appearance normal, both eyes and all related structures Pupils: Equal, round and reactive pupils present EOM: EOMs intact bilaterally Resp Effort & Inspection: normal respiratory effort Auscultation: clear to auscultation bilaterally Cardio Rate: regular rate Rhythm: regular rhythm Heart sounds: S1 normal heart sound present, S2 normal heart sound present, no gallops, no murmurs and no rubs GI Palpation (GI): No Abdominal aortic bruit present, Soft to palpation, nontender, No hepatosplenomegaly present and No Rebound tenderness present Auscultation: normal bowel sounds General: Yes no CVA tenderness Back/Spine/Pelvis Back: no CVA tenderness Cervical Spine: cervical ROM normal and No Cervical spine tenderness Thoracic/Lumbar Spine: thoraco-lumbar ROM normal, No pain with thoraco-lumbar ROM, No thoracic spinal tenderness and No lumbar spinal tenderness Extrem General: Yes normal to inspection, No edema and No calf tenderness Skin General: warm and dry. Normal skin color. Normal skin turgor Neuro General: patient oriented x3, gait normal and no focal neuro deficit Cranial nerves: Yes Equal, round and reactive pupils present Cognition (Neuro): normal cognition Gait exam (Neuro): Normal gait present Sensory Exam: No Sensory deficit (Neuro) Psych Appearance: grossly normal Affect: normal affect Attitude: cooperative Thought process: Normal thought process present Coding Level of Care Code Est Pt Level 3 (80986) Diagnoses HTN (hypertension) I10 Dyslipidemia E78.5 Erectile dysfunction N52.9 Assessment & Plan Assessment & Plan (1) HTN (hypertension): Code(s): I10 - Essential (primary) hypertension Category: Medical Plan: Blood pressure is 129/64, within goal of less than 140/90. Continue current treatment regimen. Follow-up in 3 months or sooner with symptoms or concerns. Verbalized understanding and agreed with treatment plan. (2) Dyslipidemia: Code(s): E78.5 - Hyperlipidemia, unspecified Category: Medical Plan: Recent LDL level is slightly elevated, 111, HDL level is slightly low, 37. Advised to limit foods high in saturated fat and avoid foods high in trans fat. Routine exercise encouraged. Will monitor lipid panel levels periodically or with associated symptoms or concerns. Verbalized understanding and agreed with treatment plan. (3) Erectile dysfunction: Code(s): N52.9 - Male erectile dysfunction, unspecified Category: Medical Plan: He has not experienced symptoms recently. However, his partner has been away for the past one and half month. Recent testosterone level is normal. Follow-up with symptoms or concerns. May referred to Urology. Verbalized understanding and agreed with the plan. Medications: Changed From metoprolol succinate ER 50 mg PO DAILY 30 days 30 tabs 3RF To metoprolol succinate ER 50 mg PO DAILY 90 days 90 tabs 1RF From bupropion HCl XL (Wellbutrin XL) 150 mg PO BID 30 days 60 tabs 3RF To bupropion HCl XL (Wellbutrin XL) Weight management 150 mg PO BID 30 days 60 tabs 3RF
[2024-12-23 08:24] VITALS: BP 129/64; PULSE 66; RESP 16; TEMP 36.6; O2SAT 98; BMI 44.9
== END 2024-12-23 08:46 | disposition home or self-care (01) ==
PROVIDERS: PCP Nurse Practitioner Family; Visit Provider Nurse Practitioner Family
DX: I10 Essential (primary) hypertension (principal); E78.5 Hyperlipidemia, unspecified; N52.9 Male erectile dysfunction, unspecified

== ENCOUNTER 2025-03-28 08:06 | Outpatient (AMB) | payer OTHER, SELFPAY ==
--- NOTE | 2025-03-28 08:10 | MHC.PC.OV ---
Vital Signs 03/28/25 08:14 03/28/25 08:46 Height 5 ft 6 in Weight 272 lb 6 oz BMI 44.0 BP 148/76 H 120/80 Blood Pressure Location Rt brachial Rt brachial Position Sitting Sitting Respiration 16 Pulse 69 Pulse Source Pulse Oximeter Temp 98.3 F Temp Source Oral Pulse Oximetry (%) 97 Oxygen Delivery Method Room Air Intake Visit Reasons: 3 mos HTN Intake Note: patient here for 3 month follow up for HTN Echo Vascular Technologist Required: No Allergies fluticasone [From Flonase] Allergy (Severe, Verified 03/28/25 08:41) Angioedema Medication List - Last Reconciled 03/28/25 by Trung Sheehan CNP albuterol sulfate 90 mcg/actuation 2 puffs inhalation Q6H PRN aspirin 81 mg PO DAILY bupropion HCl XL (Wellbutrin XL) 150 mg PO BID 30 days losartan-hydrochlorothiazide 100-25 mg 1 tab PO DAILY 90 days metoprolol succinate ER 50 mg PO DAILY 90 days Tobacco use date assessed: 03/28/25 Dental Screening Dental Screen Date: 03/28/25 Did you have a dental visit in the last 12 months?: No Did you have a dental problem in the last 6 months where you did not have access to dental care?: No Was dental information given to patient?: No (i already gave him forms) HPI HPI Comments History of Present Illness Details 50-year-old male presents for hypertension and review of recent lab results follow-up. He admits to taking his medications as prescribed without adverse reactions. He has been making healthy dietary choices, including low sodium diet. He offers no complaints and denies acute symptoms at this time. [facility] Medical History Bronchitis HTN (hypertension) Anxiety Surgical History History of microdiscectomy No pertinent past surgical history Family History Paternal Grandmother High blood pressure Paternal Grandfather High blood pressure Paternal Grandfather High blood pressure Other Mental health disorder Social History Household Members: Family Household Members Other:: parents Housing: House Are you a primary animal care taker to a significant other at home: No Do you presently have visiting nurse or other home services: No Alcohol intake: current Alcohol intake frequency: a few times a month Alcohol type: beer Patient Tobacco Use Status: Former Tobacco user Cigarette Packs Per Day: 1 Cigarettes Per Day: 20 Years Smoked: 10 e-Cigarette/Vaping Use: Never Used Second Hand Smoke Exposure: No Substance Use Type: Marijuana service: No Current occupational status: employed Current occupation: [employer] Current occupational exposures/hazards: No Sexual orientation: Unable to collect Gender identity: Unable to collect Cognitive needs: No Hearing needs: No Vision needs: No Questionnaire Thrive Questionnaire Date Thrive assessed: 12/16/24 I am a: Patient What is your living situation today?: I have a steady place to live Within the past 12 months, did the food you bought not last and you didn't have the money to get more?: Never true Within the past 12 months, did you worry whether your food would run out before you got money to buy more?: Never true Do you have trouble paying for medicines?: Yes Do you have trouble getting transportation to medical appointments?: No Do you have trouble paying your heating and electricity bill?: No Do you have trouble taking care of your child, family member or friend?: No Do you have trouble with day-to-day activities such as bathing, preparing meals, shopping, managing finances, etc.?: No Are you currently unemployed and looking for a job?: No Are you interested in more education?: No Please select the resources that you would like help with: None Currently or been in a relationship where the following occur: No concerns reported THRIVE Score: 0 JAMES-7 AMB Questionnaire JAMES-7 Date JAMES - 7 assessed: 12/23/24 Source: Developed by Drs. Gilbert Tomlin, Diana Jacob, Eleazar Maddox and colleagues, with an educational gm from [employer]. Review of Systems Const Details: Const Denies chills, Denies fatigue, Denies fever(s), Denies headache(s) and Denies weakness ENT Denies dizziness and Denies headache(s) Card Denies chest pain, Denies lightheadedness, Denies dyspnea and Denies other (Palpitations) Resp Denies cough, Denies dyspnea, Denies wheezing and Denies other ( shortness of breath) GI Denies abdominal pain, Denies melena, Denies hematochezia, Denies change in bowel habits, Denies dyspepsia and Denies nausea Denies hematuria and Denies dysuria Musc Denies abnormal gait, Denies myalgias, Denies arthralgias, Denies numbness and Denies tingling Skin/Breast Denies rash, Denies unusual bruising and Denies wounds Neuro Denies abnormal gait, Denies dizziness, Denies headache(s), Denies memory loss, Denies numbness, Denies Sensory deficit (Neuro), Denies tingling and Denies weakness Psych Denies anxiety, Denies depression, Denies memory loss Endo Denies cold intolerance, Denies fatigue, Denies heat intolerance, Denies polydipsia and Denies polyuria Aller/Immun Denies wheezing Physical exam (Primary Care) Vital Signs: Last Vital Signs Temp 98.3 F 03/28/25 08:14 Pulse 69 03/28/25 08:14 Resp 16 03/28/25 08:14 BP 148/76 H 03/28/25 08:14 Pulse Ox 97 03/28/25 08:14 Oxygen Delivery Method Room Air 03/28/25 08:14 BMI result Body Mass Index 44.0 Tobacco/Smoking Status: Tobacco use Status Tobacco use date assessed 03/28/25 03/28/25 08:16 Patient Tobacco Use Status Former Tobacco user 03/28/25 08:13 e-Cigarette/Vaping Use Never Used 03/28/25 08:13 Thrive Assessment: Date of Thrive Assessment Date Thrive assessed 12/16/24 03/28/25 08:13 Currently or been in a relationship where the following occur: No concerns reported Const Other: General: no acute distress and well developed Nutritional Appearance: well nourished Orientation/consciousness: patient oriented x3 HENMT Head: Yes normocephalic and Yes atraumatic Eyes General: appearance normal, both eyes and all related structures Pupils: Equal, round and reactive pupils present EOM: EOMs intact bilaterally Resp Effort & Inspection: normal respiratory effort Auscultation: clear to auscultation bilaterally Cardio Rate: regular rate Rhythm: regular rhythm Heart sounds: S1 normal heart sound present, S2 normal heart sound present, no gallops, no murmurs and no rubs GI Palpation (GI): No Abdominal aortic bruit present, Soft to palpation, nontender, No hepatosplenomegaly present and No Rebound tenderness present Auscultation: normal bowel sounds General: Yes no CVA tenderness Back/Spine/Pelvis Back: no CVA tenderness Cervical Spine: cervical ROM normal and No Cervical spine tenderness Thoracic/Lumbar Spine: thoraco-lumbar ROM normal, No pain with thoraco-lumbar ROM, No thoracic spinal tenderness and No lumbar spinal tenderness Extrem General: Yes normal to inspection, No edema and No calf tenderness Skin General: warm and dry. Normal skin color. Normal skin turgor Neuro General: patient oriented x3, gait normal and no focal neuro deficit Cranial nerves: Yes Equal, round and reactive pupils present Cognition (Neuro): normal cognition Gait exam (Neuro): Normal gait present Sensory Exam: No Sensory deficit (Neuro) Psych Appearance: grossly normal Affect: normal affect Attitude: cooperative Thought process: Normal thought process present Coding Level of Care Code Est Pt Level 3 (66455) Diagnoses HTN (hypertension) I10 Assessment & Plan Assessment & Plan (1) HTN (hypertension): Code(s): I10 - Essential (primary) hypertension Category: Medical Plan: Resting blood pressure is 120/80, within goal of less than 140/90. Continue current treatment regimen. Routine exercise and low-sodium diet encouraged. Follow-up in 3 months or sooner with symptoms or concerns. Verbalized understanding and agreed with the plan.
[2025-03-28 08:14] VITALS: BP 148/76; PULSE 69; RESP 16; TEMP 36.8; O2SAT 97; BMI 44.0
[2025-03-28 08:46] VITALS: BP 120/80
== END 2025-03-28 08:47 | disposition home or self-care (01) ==
LOC: HO.HMCFM 08:07
PROVIDERS: PCP Nurse Practitioner Family; Visit Provider Nurse Practitioner Family
DX: I10 Essential (primary) hypertension (principal)

== ENCOUNTER → 2025-03-28 08:06 | Outpatient (BNVA) | payer OTHER, SELFPAY | PROVIDERS: PCP Nurse Practitioner Family; Visit Provider Nurse Practitioner Family ==

== ENCOUNTER 2025-07-01 08:07 | Outpatient (AMB) | payer OTHER, SELFPAY ==
--- NOTE | 2025-07-01 08:16 | A.OFFPC_ITS ---
Vital Signs 07/01/25 08:21 Height 5 ft 6 in Weight 177 lb 6 oz BMI 28.6 BP 135/68 Blood Pressure Location Rt brachial Position Sitting Respiration 16 Pulse 71 Pulse Source Pulse Oximeter Temp 98.2 F Temp Source Oral Pulse Oximetry (%) 97 Oxygen Delivery Method Room Air Intake Visit Reasons: 3 mos HTN Intake Note: patient here for 3month follow up on HTN Con[employer] Buster Required: No Allergies fluticasone (From Flonase) Allergy (Severe, Verified 07/01/25 08:48) Angioedema Medication List - Last Reconciled 07/01/25 by Trung Sheehan CNP albuterol sulfate 90 mcg/actuation 2 puffs inhalation Q6H PRN aspirin 81 mg PO DAILY bupropion HCl XL (Wellbutrin XL) 150 mg PO BID 30 days losartan-hydrochlorothiazide 100-25 mg 1 tab PO DAILY 90 days metoprolol succinate ER 50 mg PO DAILY 90 days Tobacco use date assessed: 07/01/25 Dental Screening Dental Screen Date: 07/01/25 Did you have a dental visit in the last 12 months?: No Did you have a dental problem in the last 6 months where you did not have access to dental care?: No Was dental information given to patient?: No HPI HPI Comments History of Present Illness Details 50-year-old male presents for hypertensi on and review of recent lab results follow-up. He admits to taking his medications as prescribed without adverse reactions. He has been making healthy dietary choices, including low sodium diet. He reports erectile dysfunction for almost a year. [facility] Medical History Bronchitis HTN (hypertension) Anxiety Surgical History History of microdiscectomy No pertinent past surgical history Family History Paternal Grandmother High blood pressure Paternal Grandfather High blood pressure Paternal Grandfather High blood pressure Other Mental health disorder Social History Household Members: Family Household Members Other:: parents Housing: House Are you a primary care director rn to a significant other at home: No Do you presently have visiting nurse or other home services: No Alcohol intake: current Alcohol intake frequency: a few times a month Alcohol type: beer Patient Tobacco Use Status: Former Tobacco user Cigarette Packs Per Day: 1 Cigarettes Per Day: 20 Years Smoked: 10 Packs Per Year: 10 Packs per year/per ci.00 e-Cigarette/Vaping Use: Never Used Second Hand Smoke Exposure: No Substance Use Type: Marijuana service: No Current occupational status: employed Current occupation: [employer] Current occupational exposures/hazards: No Sexual orientation: Unable to collect Gender identity: Unable to collect Cognitive needs: No Hearing needs: No Vision needs: No Questionnaire Thrive Questionnaire Date Thrive assessed: 12/16/24 I am a: Patient What is your living situation today?: I have a steady place to live Within the past 12 months, did the food you bought not last and you didn't have the money to get more?: Never true Within the past 12 months, did you worry whether your food would run out before you got money to buy more?: Never true Do you have trouble paying for medicines?: Yes Do you have trouble getting transportation to medical appointments?: No Do you have trouble paying your heating and electricity bill?: No Do you have trouble taking care of your child, family member or friend?: No Do you have trouble with day-to-day activities such as bathing, preparing meals, shopping, managing finances, etc.?: No Are you currently unemployed and looking for a job?: No Are you interested in more education?: No Please select the resources that you would like help with: None Currently or been in a relationship where the following occur: No concerns reported THRIVE Score: 0 JAMES-7 AMB Questionnaire JAMES-7 Date JAMES - 7 assessed: 12/23/24 Source: Developed by Drs. Gilbert Tomlin, Diana Jacob, Eleazar Maddox and colleagues, with an educational gm from [employer]. Review of Systems Const Details: Const Denies chills, Denies fatigue, Denies fever(s), Denies headache(s) and Denies weakness ENT Denies dizziness and Denies headache(s) Card Denies chest pain, Denies lightheadedness, Denies dyspnea and Denies other (Palpitations) Resp Denies cough, Denies dyspnea, Denies wheezing and Denies other ( shortness of breath) GI Denies abdominal pain, Denies melena, Denies hematochezia, Denies change in bowel habits, Denies dyspepsia and Denies nausea Reports ED, Denies hematuria and Denies dysuria Musc Denies abnormal gait, Denies myalgias, Denies arthralgias, Denies numbness and Denies tingling Skin/Breast Denies rash, Denies unusual bruising and Denies wounds Neuro Denies abnormal gait, Denies dizziness, Denies headache(s), Denies memory loss, Denies numbness, Denies Sensory deficit (Neuro), Denies tingling and Denies weakness Psych Denies anxiety, Denies depression, Denies memory loss Endo Denies cold intolerance, Denies fatigue, Denies heat intolerance, Denies polydipsia and Denies polyuria Aller/Immun Denies wheezing Physical exam (Primary Care) Vital Signs: Last Vital Signs Temp 98.2 F 07/01/25 08:21 Pulse 71 07/01/25 08:21 Resp 16 07/01/25 08:21 BP 135/68 07/01/25 08:21 Pulse Ox 97 07/01/25 08:21 Oxygen Delivery Method Room Air 07/01/25 08:21 BMI result Body Mass Index 28.6 Tobacco/Smoking Status: Tobacco use Status Tobacco use date assessed 07/01/25 07/01/25 08:23 Patient Tobacco Use Status Former Tobacco user 07/01/25 08:23 e-Cigarette/Vaping Use Never Used 07/01/25 08:23 Thrive Assessment: Date of Thrive Assessment Date Thrive assessed 12/16/24 07/01/25 08:23 Currently or been in a relationship where the following occur: No concerns reported Const Other: General: no acute distress and well developed Nutritional Appearance: well nourished Orientation/consciousness: patient oriented x3 HENMT Head: Yes normocephalic and Yes atraumatic Eyes General: appearance normal, both eyes and all related structures Pupils: Equal, round and reactive pupils present EOM: EOMs intact bilaterally Resp Effort & Inspection: normal respiratory effort Auscultation: clear to auscultation bilaterally Cardio Rate: regular rate Rhythm: regular rhythm Heart sounds: S1 normal heart sound present, S2 normal heart sound present, no gallops, no murmurs and no rubs GI Palpation (GI): No Abdominal aortic bruit present, Soft to palpation, nontender, No hepatosplenomegaly present and No Rebound tenderness present Auscultation: normal bowel sounds General: Yes no CVA tenderness Back/Spine/Pelvis Back: no CVA tenderness Cervical Spine: cervical ROM normal and No Cervical spine tenderness Thoracic/Lumbar Spine: thoraco-lumbar ROM normal, No pain with thoraco-lumbar ROM, No thoracic spinal tenderness and No lumbar spinal tenderness Extrem General: Yes normal to inspection, No edema and No calf tenderness Skin General: warm and dry. Normal skin color. Normal skin turgor Neuro General: patient oriented x3, gait normal and no focal neuro deficit Cranial nerves: Yes Equal, round and reactive pupils present Cognition (Neuro): normal cognition Gait exam (Neuro): Normal gait present Sensory Exam: No Sensory deficit (Neuro) Psych Appearance: grossly normal Affect: normal affect Attitude: cooperative Thought process: Normal thought process present Coding Level of Care Code Est Pt Level 4 (02196) Diagnoses HTN (hypertension) I10 Erectile dysfunction N52.9 Assessment & Plan Assessment & Plan (1) HTN (hypertension): Code(s): I10 - Essential (primary) hypertension Category: Medical Plan: Blood pressure is 135/68, within goal of less than 140/90. Continue current treatment regimen. Low-sodium diet encouraged. Follow-up in 3 months or sooner with symptoms or concerns. Verbalized understanding and agreed with the plan. (2) Erectile dysfunction: Code(s): N52.9 - Male erectile dysfunction, unspecified Category: Medical Plan: Recent testosterone level is normal. Referred to Urology. Orders: Referrals Urology Referral N52.9 - Male erectile dysfunction, unspecified
[2025-07-01 08:21] VITALS: BP 135/68; PULSE 71; RESP 16; TEMP 36.8; O2SAT 97; BMI 28.6
== END 2025-07-01 08:56 | disposition home or self-care (01) ==
LOC: HO.HMCFM 08:08
PROVIDERS: PCP Nurse Practitioner Family; Visit Provider Nurse Practitioner Family
DX: I10 Essential (primary) hypertension (principal); N52.9 Male erectile dysfunction, unspecified

== ENCOUNTER 2025-10-03 08:11 | Outpatient (AMB) | payer OTHER, SELFPAY ==
--- NOTE | 2025-10-03 08:14 | A.OFFPC_ITS ---
Vital Signs 10/03/25 08:17 10/03/25 08:49 Height 5 ft 6 in Weight 286 lb BMI 46.2 BP 142/80 H 138/80 Blood Pressure Location Lt brachial Position Sitting Respiration 13 Pulse 62 Pulse Source Pulse Oximeter Temp 97.7 F Temp Source Oral Pulse Oximetry (%) 98 Oxygen Delivery Method Room Air Intake Visit Reasons: aaliyah Aguila /3 mos HTN Intake Note: AALIYAH to establish care and follow up on HTN. Escalator Constructor Required: No Allergies fluticasone (From Flonase) Allergy (Severe, Verified 10/03/25 08:22) Angioedema Medication List - Last Reconciled 10/03/25 by Radha Cunningham, [facility]- albuterol sulfate 90 mcg/actuation 2 puffs inhalation Q6H PRN aspirin 81 mg PO DAILY bupropion HCl XL (Wellbutrin XL) 150 mg PO BID 30 days losartan-hydrochlorothiazide 100-25 mg 1 tab PO DAILY 90 days metoprolol succinate ER 50 mg PO DAILY 90 days Tobacco use date assessed: 10/03/25 Dental Screening Dental Screen Date: 10/03/25 Did you have a dental visit in the last 12 months?: Yes Did you have a dental problem in the last 6 months where you did not have access to dental care?: No Was dental information given to patient?: Patient has dentist HPI HPI Comments History of Present Illness Details 50 y/o M with HTN, ED, dyslipidemia, obe sity, former smoker, JAMES, chronic cough s/p microdiscectomy Health Maintenance Flu at Pharmacy Tdap Colon 2023 + polyps, repeat [address] [facility], wears glasses, [facility] Chiro Dr Barajas History of Present Illness The patient is a 50 year old male presenting to [facility] care Previous PCP Gege Sheehan, records reviewed CPE 10/19/24, Last labs 09/2024 CC: chronic cough. Chronic Cough: - The patient reports a chronic cough th at started after a COVID vaccines years ago. - triggered by deep inspiration. - He has a history of two hospitalizatio ns for low oxygen levels since the onset of these lung problems. - He denies a history of asthma. - The patient has an albuterol inhaler p rescribed, but he only uses it periodically w/o releif; was on steroidal inhaler in the past, reports this caused a blister in his eye. - He reports no chest pain with the coug h, but mentions a sensation in his chest that resolves with slow, deep breathing. - He notes a past chest x-ray from 2020 in [place] was reported as cloudy, and his last chest x-ray was in 2023. - He also reports waking up with thick p hlegm clumps in his throat, which he gags up, and wonders if this is related to being a mouth breather. Obesity: - The patient identifies his weight as a main issue, with a BMI of 46.2. - He has previously worked with a [employer] for six months, during which he lost weight from 300 to 270 pounds, but has since regained it. - He has tried various diets, including protein-only and no-carb diets, without sustained success. - He currently takes Wellbutrin 150 mg t wice daily, which was prescribed to aid in weight loss, but he has not lost weight with it and his weight fluctuates between 276 and 290 pounds. - He feels the Wellbutrin has helped his mood. - Interested in meds for wt loss; not cooper rgery Hypertension: - The patient has a history of hypertens ion. - He is currently taking losartan-hydroc hlorothiazide 100-25mg and metoprolol succinate ER 50mg for management. - BP at goal Dyslipidemia: - He has a history of dyslipidemia, whic h is managed with diet and a daily baby aspirin. - due for labs Generalized Anxiety Disorder: - The patient has a history of generaliz ed anxiety disorder. - He is taking Wellbutrin 150 mg, which he states has been helpful for his mood. Onychomycosis of toenail: - The patient reports that the nail on h is left second toe is growing upwards and has been this way for almost a year. - A previous provider had told him the n ail would fall off, but it has not. Neck and Back Pain: - The patient reports neck and back pain with neck stiffness and limited range of motion today. - He has a history of L5-S1 back surgery around [id number]. - would like to see Chiro Past Medical History - Hypertension - Dyslipidemia - Generalized Anxiety Disorder - Obesity with BMI of 46.2 - History of hospitalization for low oxy gen levels - Allergy to Flonase - History of back surgery at L5-S1 Review of Systems - Respiratory: Reports a cough for one m onth that occurs with deep inspiration and a history of low oxygen levels. - ENT: Reports waking with thick phlegm clumps requiring him to gag to clear his throat. - Integumentary: Reports his left second toenail is growing upwards and has not fallen off as previously expected. - Musculoskeletal: Reports neck and back pain with neck stiffness and limited range of motion today. - Cardiovascular: Denies chest pain. - General: Reports obesity that he is un able to manage with diet. - Psychiatric: Reports his mood has been helped by Wellbutrin. Physical Exam General: Well developed, well nourished, in no acute distress. Appears stated age. Head: Normocephalic, atraumatic. Eyes: Pupils are equal, round and reactive to light and accommodation. Conjunctivae are clear. Lungs: Clear to auscultation bilaterally. No rales, rhonchi or wheeze noted. Goo d air flow in all turner. Heart: Regular rate and rhythm. No murmurs, click, rubs or gallops are noted. Pulses: Peripheral pulses are equal and palpable bilaterally. Extremities: No clubbing, cyanosis nor edema is noted. Fungal toe nail, L 2nd toe Psych: Mood and affect appropriate Results - A chest x-ray in 2020 was reportedly c loudy. - Labs 09/2024 Dyslipidemia Medical Decision Making The patient is a 50-year-old male presenting to [facility] care with multiple chronic issues, primarily a persistent cough, obesity, and pain. His cough, which began after a COVID-19 vaccine, and history of hospitalizations for hypoxia warrant a full pulmonary workup. Given the clear lung sounds on exam, I suspect a non-pulmonary cause such as silent acid reflux could be contributing, which can manifest as a chronic cough. Therefore, I am initiating a trial of omeprazole as it may provide relief and will not interfere with the planned pulmonary function testing. Referrals to pulmonology for a pulmonary function test are also being placed to definitively evaluate his lung function. Regarding his obesity, the patient has tried diet, nutrition, and Wellbutrin without success. Given his interest in medical management, a referral to the [facility] is appropriate to discuss further options, including injectable medications. I will continue his Wellbutrin as he reports a mood be nefit. The patient's left second toenail has the appearance of a fungal infection (onychomycosis) and likely requires removal; therefore, a podiatry referral is warranted. For his acute neck pain and chronic back issues, a referral to a chiropractor he has seen previously and trusts is a reasonable step for evaluation and management. I will order updated lab work as his last set was from September of last year. All his current medications will be refilled under my name to streamline future requests. A follow-up is scheduled in six weeks to assess his response to the omeprazole trial and review the status of referrals. Plan 1. Chronic Cough - Given clear lung sounds on exam, will trial omeprazole for 90 days for possible silent reflux as a cause of the cough. - A referral will be placed for a pulmon beverly function test. - A referral will be placed to a pulmono logist for further evaluation. - Cont prn albuterol - UTD on Tdap, Flu & Shingles 2. Obesity - Will place a referral to the Weight Ma nagement Clinic to discuss medical management options, including injectables. - The patient declined the surgical path way. - Continue Wellbutrin 150 mg twice daily as it helps with mood, although it has not been effective for weight loss. 3. Hypertension - Will renew prescriptions for losartan- hydrochlorothiazide and metoprolol. 4. Onychomycosis Of Toenail - A referral will be placed to podiatry for evaluation and likely removal of the affected nail. 5. Neck And Back Pain - A referral will be placed to [facility] (Dr. Barajas) for management of neck and back pain. 6. Preventative Care - Will order updated lab work. - The patient will get his flu vaccine a t an outside pharmacy. - The patient is up to date on his Tdap and Shingles vaccinations. 7. Follow-Up - Follow up in six weeks to assess the r esponse to omeprazole and review the progress of referrals. Patient Instructions - Please get your blood work done today before you leave the clinic. - You will receive phone calls to [facility] appointments for a pulmonary function test, a lung specialist (sub prior), a weight housing management officer, and a foot doctor (senior site manager). - Please call [facility] to schedule an appointment for your neck and back pain. The phone number is [phone]. - When the Weight Management clinic call s, let them know you are interested in discussing medications, not surgery. - I have sent a new prescription for ome prazole to your pharmacy. Take one pill each morning on an empty stomach, at least 30 minutes before eating or drinking. Alternatively, you can take it right before bed. - I have also refilled your other medica tions: losartan-hydrochlorothiazide, metoprolol, and Wellbutrin. - Please schedule a follow-up appointmen t to see me in about six weeks. - Please make sure to sign up for the [employer] portal jasmyne on your phone. It is the best way to send me messages with questions or concerns. Consent The patient verbally agreed to a trial of omeprazole for his cough, understanding the goal is to see if it helps while awaiting further testing. He also consented to referrals to pulmonology, the [facility] Management Clinic (for non-surgical options), podiatry, and chiropractic services. The patient agreed to have blood work done. Patient was informed and verbally consented to the use of an ambient scribe for clinic note documentation during this visit. Total time spent caring for the patient today was 45 minutes. This includes time spent before the visit reviewing the chart, time spent during the visit, and time spent after the visit on documentation, reviewing laboratory results, diagnostic imaging, medications, performing a medically necessary evaluation, counseling on diagnoses, care coordination, ordering appropriate tests, ordering appropriate medications, review of tests performed by other providers, reporting test results with the patient, communication with other healthcare providers. [facility] Medical History (Updated 10/03/25 @ 08:55 by ANDRE Holcomb-) Angioedema Anxiety Bronchitis HTN (hypertension) Surgical History (Updated 10/03/25 @ 08:21 by ANDRE Holcomb-JONATHAN) History of microdiscectomy No pertinent past surgical history Family History Paternal Grandmother High blood pressure Paternal Grandfather High blood pressure Paternal Grandfather High blood pressure Other Mental health disorder Social History Household Members: Family Household Members Other:: parents Housing: House Are you a primary animal care provider to a significant other at home: No Do you presently have visiting nurse or other home services: No Alcohol intake: current Alcohol intake frequency: a few times a month Alcohol type: beer Patient Tobacco Use Status: Former Tobacco user Cigarette Packs Per Day: 1 Cigarettes Per Day: 20 Years Smoked: 10 e-Cigarette/Vaping Use: Never Used Second Hand Smoke Exposure: No Substance Use Type: Marijuana service: No Current occupational status: employed Current occupation: [employer] Current occupational exposures/hazards: No Sexual orientation: Unable to collect Gender identity: Unable to collect Cognitive needs: No Hearing needs: No Vision needs: No Questionnaire PHQ-9 Over the last 2 weeks, how often have you been bothered by any of the following problems? 1. Little interest or pleasure in doing things: not at all 2. Feeling down, depressed, or hopeless: not at all 3. Trouble falling or staying asleep, or sleeping too much: not at all 4. Feeling tired or having little energy: not at all 5. Poor appetite or overeating: not at all 6. Feeling bad about yourself - or that you are a failure or have let yourself or your family down: not at all 7. Trouble concentrating on things, such as reading the newspaper or watching television: not at all 8. Moving or speaking so slowly that other people could have noticed. Or the opposite - being so fidgety or restless that you have been moving around a lot more than usual: not at all 9. Thoughts that you would be better off or of hurting yourself in some way: not at all Total score: 0 Depression Screening Interpretation: Negative Depression Screening Done: Yes 65505 - PHQ-9 Billing: Yes Source: Developed by Drs. Gilbert Tomlin, Diana Jacob, Eleazar Maddox and colleagues, with an educational gm from [employer]. Thrive Questionnaire Date Thrive assessed: 10/03/25 I am a: Patient What is your living situation today?: I have a steady place to live Within the past 12 months, did the food you bought not last and you didn't have the money to get more?: Never true Within the past 12 months, did you worry whether your food would run out before you got money to buy more?: Never true Do you have trouble paying for medicines?: Yes Do you have trouble getting transportation to medical appointments?: No Do you have trouble paying your heating and electricity bill?: No Do you have trouble taking care of your child, family member or friend?: No Do you have trouble with day-to-day activities such as bathing, preparing meals, shopping, managing finances, etc.?: No Are you currently unemployed and looking for a job?: No Are you interested in more education?: No Please select the resources that you would like help with: None Currently or been in a relationship where the following occur: No concerns reported THRIVE Score: 0 AUDIT C Alcohol Use Questionnaire (AUDIT-C) 1. How often do you have a drink containing alcohol?: Never 3. How often do you have six or more drinks on one occasion?: Never Total Score: 0 Score Reviewed/Action Taken: Yes JAMES-7 AMB Questionnaire JAMES-7 Date JAMES - 7 assessed: 10/03/25 Feeling nervous, anxious, or on edge: 0 = Not at all Not being able to stop or control worryin = Not at all Worrying too much about different things: 0 = Not at all Trouble relaxin = Not at all Being so restless that it is hard to sit still: 0 = Not at all Becoming easily annoyed or irritable: 0 = Not at all Feeling afraid as if something awful might happen: 0 = Not at all Total JAMES-7 score (0-4 normal; 5-9 mild; 10-14 moderate; 15-21 severe): 0 Source: Developed by Drs. Gilbert Tomlin, Diana Jacob, Eleazar Maddox and colleagues, with an educational gm from [employer]. JAMES-7 Assessment Billing JAMES-7 Assessment Tool: JAMES-7 Assessment 12611 Physical exam (Primary Care) Vital Signs: Last Vital Signs Temp 97.7 F 10/03/25 08:17 Pulse 62 10/03/25 08:17 Resp 13 10/03/25 08:17 BP 142/80 H 10/03/25 08:17 Pulse Ox 98 10/03/25 08:17 Oxygen Delivery Method Room Air 10/03/25 08:17 BMI result Body Mass Index 46.2 BMI Assessment/Plan discussion: High BMI High, discussed plan: lifestyle Tobacco/Smoking Status: Tobacco use Status Tobacco use date assessed 10/03/25 10/03/25 08:15 Patient Tobacco Use Status Former Tobacco user 10/03/25 08:15 e-Cigarette/Vaping Use Never Used 10/03/25 08:15 PHQ-9: PHQ-9 Score PHQ-9: Total score 0 10/03/25 08:22 Depression Screening Interpretation: Negative Thrive Assessment: Date of Thrive Assessment Date Thrive assessed 10/03/25 10/03/25 08:15 Currently or been in a relationship where the following occur: No concerns reported Coding Level of Care Code Est Pt Level 5 (30727) Complex visit Add On G2211 Diagnoses Encounter to establish care with new provider Z76.89 Anxiety F41.9 Primary hypertension I10 Hypertension type: primary hypertension Dyslipidemia E78.5 History of colonoscopy Z98.890 Obesity, morbid, BMI 40.0-49.9 E66.01 Chronic cough R05.3 Onychomycosis B35.1 Chronic neck and back pain M54.2; M54.9; G89.29 Additional Codes JAMES-7 Assessment Billing - JAMES-7 Assessment Tool: JAMES-7 Assessment 02737 ([id number]) PHQ-9 - 78006 - PHQ-9 Billing: Yes ([id number]) Assessment & Plan Assessment & Plan (1) Encounter to establish care with new provider: Code(s): Z76.89 - Persons encountering health services in other specified circumstances (2) Anxiety: Code(s): F41.9 - Anxiety disorder, unspecified Category: Medical (3) HTN (hypertension): Code(s): I10 - Essential (primary) hypertension Category: Medical Qualifiers: Hypertension type: primary hypertension Qualified Code(s): I10 - Essential (primary) hypertension (4) Dyslipidemia: Code(s): E78.5 - Hyperlipidemia, unspecified Category: Medical (5) History of colonoscopy: Onset Date: ~01/2024 Code(s): Z98.890 - Other specified postprocedural states Category: Surgical (6) Obesity, morbid, BMI 40.0-49.9: Code(s): E66.01 - Morbid (severe) obesity due to excess calories Category: Medical (7) Chronic cough: Code(s): R05.3 - Chronic cough Category: Medical (8) Onychomycosis: Code(s): B35.1 - Tinea unguium Category: Medical (9) Chronic neck and back pain: Code(s): M54.2 - Cervicalgia; M54.9 - Dorsalgia, unspecified; G89.29 - Other chronic pain Category: Medical Plan . Orders: Orders Hemoglobin A1c Today E66.01 - Morbid (severe) obesity due to excess calories, E78.5 - Hyperlipidemia, unspecified, I10 - Essential (primary) hypertension Lipid Panel Today E66.01 - Morbid (severe) obesity due to excess calories, E78.5 - Hyperlipidemia, unspecified, I10 - Essential (primary) hypertension Microalbumin, Random (w Creat) Today E66.01 - Morbid (severe) obesity due to excess calories, E78.5 - Hyperlipidemia, unspecified, I10 - Essential (primary) hypertension Prostate Specific Antigen Scr Today E66.01 - Morbid (severe) obesity due to excess calories, E78.5 - Hyperlipidemia, unspecified, I10 - Essential (primary) hypertension TSH reflex Free T4 Today E66.01 - Morbid (severe) obesity due to excess calories, E78.5 - Hyperlipidemia, unspecified, I10 - Essential (primary) hypertension Vitamin B12 and Folate Today E66.01 - Morbid (severe) obesity due to excess calories, E78.5 - Hyperlipidemia, unspecified, I10 - Essential (primary) hypertension PFT pulmonary function test Today R05.3 - Chronic cough Complete Blood Count no Diff Today E66.01 - Morbid (severe) obesity due to excess calories, E78.5 - Hyperlipidemia, unspecified, I10 - Essential (primary) hypertension Comprehensive Met. Panel Today E66.01 - Morbid (severe) obesity due to excess calories, E78.5 - Hyperlipidemia, unspecified, I10 - Essential (primary) hypertension Vitamin D 25-OH Total Today E66.01 - Morbid (severe) obesity due to excess calories, E78.5 - Hyperlipidemia, unspecified, I10 - Essential (primary) hypertension Referrals Pulmonology Referral R05.3 - Chronic cough Chiropractic Referral G89.29 - Other chronic pain, M54.2 - Cervicalgia, M54.9 - Dorsalgia, unspecified Medical Weight Management Referral E66.01 - Morbid (severe) obesity due to excess calories Podiatry Referral B35.1 - Tinea unguium Medications: New omeprazole 20 mg PO DAILY 90 caps 0RF Refilled metoprolol succinate ER 50 mg PO DAILY 90 tabs 1RF 90 days bupropion HCl XL (Wellbutrin XL) Weight management 150 mg PO BID 60 tabs 3RF 30 days losartan-hydrochlorothiazide 100-25 mg 1 tab PO DAILY 90 tabs 1RF 90 days Patient Instructions: Walk-In Care (Urgent Care): We Make it Easy Walk-in for urgent medical issues such as: ? Seasonal Allergies ? Insect Bites ? Cough ? Diarrhea ? Acute Asthma Attacks ? Back, Knee or Joint Pain ? Ear Infection ? Fever without a Rash ? Headaches ? Nausea ? [place] [facility], Rash or Skin Irritation ? Sore Throat ? Sports Physicals ? Vomiting Most insurances are accepted. Patients do not need to be part of the [facility] to seek care at the walk-in clinic. Locations [address] [place] [address] Open Friday through Friday 8am-5pm *Hours may vary due to staffing availability. To confirm Walk-In Care hours please call. [facility] , [place] [address] ? [phone] [facility] in [place] provides services to ages 18 and over. Open Friday-Friday: 7 a.m. to 5 p.m. and Friday: 9 a.m. to 3 p.m.* *Hours may vary due to staffing availability. To confirm Walk-In Care hours in [place], please call [phone]. [address] [place] [address] ? [phone] [facility] in [place] provides services to ages 12 and over. Open Friday-Friday: 8 a.m. to 5 p.m. Hours may vary due to staffing availability. To confirm Walk-In Care hours in [place], please call [phone]. LABORATORY SERVICES: [facility] ? Primary Location [address] [place] [address] Friday through Friday 6:00 AM ? 5:00 PM Friday 7:00 AM ? 11:00 AM* [phone] The [facility] is centrally located near the front entrance of the [facility] for easy outpatient access. Convenient parking is provided for outpatients. *Hours may vary due to staffing availability. To confirm Laboratory hours for any location, please call [phone]. Offsite Location For your convenience, we offer offsite laboratory draw stations at the following locations: [address] [facility] [place] ? [facility] [address] [facility], [address], [place] Friday through Friday 7:30 AM ? 1:00 PM* [phone] *Hours may vary due to staffing availability. To confirm Laboratory hours for any location, please call [phone]. [place] ? [facility] [address] [facility], [place] Friday through Friday 6:00 AM ? 3:30 PM* Friday 6:30 AM ? 3 PM* [phone] *Hours may vary due to staffing availability. To confirm Laboratory hours for any location, please call [phone]. [address] [facility] Friday through Friday 7:30 AM ? 4:00 PM* [phone] *Hours may vary due to staffing availability. To confirm Laboratory hours for any location, please call [phone] [place] [address] Friday through 9:00 AM ? 4:00 PM* *Hours may vary due to staffing availability. To confirm Laboratory hours for any location, please call [phone]. Appointments are not necessary. Walk-ins are welcome. Like all the departments throughout the [facility], our Lab undergoes frequent reviews to ensure the quality and accuracy of test results, and our staff takes special pride in its status as a nationally accredited facility. Patient Portal: [facility] ONE PATIENT. ONE RECORD. BETTER CARE. [facility] has a fully integrated, cutting- edge mobile electronic health information system that has revolutionized the way we care for our patients and manage our organization. This system improves communication and coordination enabling us to provide safe, higher-quality care, and an overall positive experience for staff and patients. Our first priority, as always, is to deliver the highest quality care possible. The system is running in the background supporting that priority. This portal is for all [facility] services and practices. If you are experiencing any technical difficulties with enrolling or logging into the Patient Portal please complete the [facility] Patient Portal Technical Support Form. [facility] now offers a new secure on-line interactive tool for patients to review their health information ? ?Patient Portal. This interactive web portal will enable patients and their families to take an active role in their care by providing easy, secure access to their health information via the internet. The Patient Portal provides patients with instant access to their health information, including laboratory results, medications, allergies, demographic information, visit history, and more. In addition to managing their own care, parents and health care proxies with authorized consent will appreciate the ability to access the records of those individuals for whom they provide care. Please note: if you wish to gain access (Proxy) to another patient?s portal, you will be required to come to the Medical Records Department in person at [facility]. Both the patient giving proxy access and the proxy will need to provide photo identification and complete the appropriate authorization. The Patient Portal also allows track their appointments online. The [facility] Patient Portal also saves patients time by allowing them to submit updates to their demographic and contact information prior to their visits. Portal email notifications will also alert patients to any new activity on their portal, such as test results and new appointments. In order to initially enroll in the [facility] Patient Portal, you will need to enter some required information including the following: * your [facility] Medical Record number * your personal home email address * name * date of Please note: In order to enroll in the [facility] Patient Portal, we need to have your email address on file in your electronic medical record. ?The email address needs to be specific for one person (yourself) in order for your Portal enrollment to be successful. ?You can update your email address in person with our Registration staff when you are registering for a hospital visit. ?Otherwise, you will need to come to the Health Information Management (Medical Records) Department at [facility]. ?We are open from Friday ? Friday from 7:30 a.m. ? 4:30 p.m. ?You will be required to present a photo id. Once you have successfully enrolled in the Patient Portal, you will receive a one-time user id and password for the Portal, sent to your email address. ?This will allow you to log into the Patient Portal within 99 hrs and reset your own logon id and password, and define personal security questions. ?Once your permanent login and password have been set, you can log into the [facility] Patient Portal at any time via the blue button above or from the Portal Logon button on any page of the [facility] website. [facility] and [facility] encourage all of our patients to enroll in Patient Portal as it presents a valuable opportunity for patients and their families to actively participate in their care and stay healthy Welcome to [facility]. ?We look forward to working with you.
[2025-10-03 08:17] VITALS: BP 142/80; PULSE 62; RESP 13; TEMP 36.5; O2SAT 98; BMI 46.2
[2025-10-03 08:49] VITALS: BP 138/80
== END 2025-10-03 08:48 | disposition home or self-care (01) ==
LOC: HO.HMCFM 08:12
PROVIDERS: PCP Nurse Practitioner Family; Visit Provider Nurse Practitioner Family
DX: I10 Essential (primary) hypertension (principal); F41.9 Anxiety disorder, unspecified; E66.01 Morbid (severe) obesity due to excess calories; Z68.42 Body mass index [BMI] 45.0-49.9, adult; Z76.89 Persons encountering health services in other specified circumstances; Z98.890 Other specified postprocedural states; E78.5 Hyperlipidemia, unspecified; R05.3 Chronic cough; B35.1 Tinea unguium; M54.2 Cervicalgia; M54.9 Dorsalgia, unspecified; G89.29 Other chronic pain

== ENCOUNTER 2025-10-03 08:11 | Outpatient (REF) | payer OTHER, SELFPAY ==
[2025-10-03 11:48] LABS: Hematocrit 46.1 % (42.0-52.0); Hemoglobin 16.4 g/dl (14.0-18.0); Mean Corpuscular HGB Conc 35.6 g/dl (31.0-36.0); Mean Corpuscular Hemoglobin 31.6 pg (27.0-33.0); Mean Corpuscular Volume 88.8 fL (80.0-98.0); NRBC Abs Auto 0.000 X10*3/uL (0.0-0.012); NRBC Pct Auto 0.0 /100WBC (0.0-0.2); Platelet Count 236 X10*3/uL (160-400); Red Blood Count 5.19 X10*6/uL (4.60-5.80); White Blood Count 9.3 X10*3/uL (4.8-10.8)
[2025-10-03 12:38] LABS: Alanine Aminotransferase 26 U/L (0-40); Albumin Level 4.4 g/dL (3.5-5.0); Alkaline Phosphatase 58 U/L (39-117); Anion Gap 11 (12-20); Aspartate Amino Transferase 28 U/L (5-37); Blood Urea Nitrogen 14 mg/dL (9-16); Calcium 9.2 mg/dL (8.4-10.2); Carbon Dioxide 30 mmol/L (22-29); Chloride 106 mmol/L (96-108); Cholesterol 155 mg/dL (<200); Estimated Glomerular Filt Rate > 60; HDL Cholesterol 35 mg/dL (>40); Potassium 3.9 mmol/L (3.3-5.1); Sodium 143 mmol/L (135-145); Total Protein 6.7 g/dL (6.5-8.0); Triglycerides 98 mg/dL (<150)
[2025-10-03 14:00] LABS: Folate 8.6 ng/mL (> or = 4.0); Vitamin B12 415 pg/mL (200-900)
== END 2025-10-03 08:12 | disposition home or self-care (01) ==
LOC: HO.WFDLDS 08:11
PROVIDERS: PCP Nurse Practitioner Family; Visit Provider Nurse Practitioner Family
DX: Z12.5 Encounter for screening for malignant neoplasm of prostate (principal); Z76.89 Persons encountering health services in other specified circumstances; E66.01 Morbid (severe) obesity due to excess calories; I10 Essential (primary) hypertension; E78.5 Hyperlipidemia, unspecified; F41.9 Anxiety disorder, unspecified; R05.3 Chronic cough; B35.1 Tinea unguium; M54.2 Cervicalgia; M54.9 Dorsalgia, unspecified; G89.29 Other chronic pain; Z98.890 Other specified postprocedural states; Z68.42 Body mass index [BMI] 45.0-49.9, adult
CPT/HCPCS: 36415; 80053; 80061; 82306; 82607; 82746; 83036; 84153; 84443; 85027; 96127